=== PATIENT | female | born 1960 | race Hispanic/Latino ===

== ENCOUNTER 2020-04-18 07:07 | Emergency (ER) | payer SELFPAY ==
[2020-04-18 07:18] VITALS: BP 105/72
--- NOTE | 2020-04-18 07:48 | Emergency Department Report ---
Chief Complaint: Headache Stated Complaint: MIGRAINE Time Seen by Provider: 04/18/20 07:30 - [facility] History of Present Illness: This is a 60-year-old female with long history of migraine headaches who presents the ED complaining of migraine headache x1 day. She describes the pain as throbbing and aching in nature and rates it about a 6 out of 10 intensity. patient states that pain is localized to the frontal region and started last night. Patient states that she normally takes Imitrex 50 mg and is out of her medication. Patient denies any trauma to the head, blurry vision, dizziness, lightheadedness, vomiting or any other complaints. Pt. admits pain not relieved with [id number] medication such as Motrin, Pt. denies fever, chills, vomiting, trauma, vision impairment, - ROS Review of Systems: As noted in HPI - Exam Vital Signs: Vital Signs 04/18/20 07:11 Temperature 98.7 F Pulse Rate 89 Respiratory 18 Rate Blood Pressure 105/72 O2 Sat by Pulse 96 Oximetry Physical Exam: GENERAL: Alert and oriented x3, no apparent distress, Normal Gait, atraumatic. HEAD: Head is normocephalic and a-traumatic. EYES: Extra ocular muscles are intact. Pupils are equal, round, and reactive to light and accommodation. NECK: Supple. Non edematous, No carotid bruits. No lymphadenopathy or thyromegaly. No C-spine tenderness NEUROLOGIC: The patient is cooperative with no focal neurologic deficits. Cranial nerves II through XII are grossly intact. Normal speech. Normal sensation in bilateral upper and lower extremities, No loss of sensation, No facial droop, SKIN: Warm and dry, No lesions, No ulceration or induration present. MSE screening note: Focused history and physical exam performed. Due to findings the following was ordered: ED Medical Decision Making - Medical Decision Making 60-year-old presents with headache secondary to migraine headache. Patient has a known history and is out of her medication. I discussed patient will discharge with couple days worth of Imitrex and to follow-up with her primary care physician to get her current prescription. Patient had no neurological deficit during ED stay. Vital signs are normal she is in no acute or respiratory distress. ED Disposition for MSE Clinical Impression: Migraine headache without aura Disposition: MED SCREENING EXAM-LEFT Is pt being admited?: No Does the pt Need Aspirin: No Instructions: Migraine Headache (ED), Acute Headache (ED) Additional Instructions: Make sure to follow up with the primary care physician as discussed. Take all your medications as you've been prescribed. If you have any worsening symptoms or develop new symptoms please return to ED immediately. Prescriptions: SUMAtriptan SUCCINATE [Imitrex] 50 mg PO BID #10 tab Referrals: [facility] [Outside] - 3-5 Days [facility] [Outside] - 3-5 Days [facility] [Outside] - 3-5 Days Forms: Work/School Release Form(ED) Time of Disposition: 07:54
== END 2020-04-18 08:05 | disposition left against medical advice (07) ==
LOC: ED 07:07
DX: G43.909 Migraine, unspecified, not intractable, without status migrainosus (principal); Z53.21 Procedure and treatment not carried out due to patient leaving prior to being seen by health care provider

== ENCOUNTER 2020-07-09 08:14 | Emergency (ER) | payer BC ==
[2020-07-09 08:59] LABS: Basophils % (Auto) 0.4 % (0.0-1.8); Eosinophils # (Auto) 0.2 K/mm3 (0.0-0.4); Eosinophils % (Auto) 2.7 % (0.0-4.3); Hematocrit 40.4 % (30.3-42.9); Hemoglobin 13.5 gm/dl (10.1-14.3); Lymphocytes # (Auto) 1.4 K/mm3 (1.2-5.4); Lymphocytes % (Auto) 18.1 % (13.4-35.0); Mean Corpuscular HGB Conc 33 % (30-34); Mean Corpuscular Volume 93 fl (79-97); Monocytes # (Auto) 0.3 K/mm3 (0.0-0.8); Monocytes % (Auto) 4.4 % (0.0-7.3); Platelet Count 173 K/mm3 (140-440); Red Blood Count 4.36 M/mm3 (3.65-5.03); Red Cell Distribution Width 14.5 % (13.2-15.2)
[2020-07-09 09:09] LABS: BUN/Creatinine Ratio 33; Blood Urea Nitrogen 30 mg/dL (7-17); Calcium 10.2 mg/dL (8.4-10.2); Hemolysis Index 7
--- NOTE | 2020-07-09 10:29 | XRay Report ---
CHEST 2 VIEWS INDICATION / CLINICAL INFORMATION: Chest Pain. COMPARISON: 05/22/2009 FINDINGS: SUPPORT DEVICES: None. HEART / MEDIASTINUM: No significant abnormality. LUNGS / PLEURA: No significant pulmonary or pleural abnormality. No pneumothorax. ADDITIONAL FINDINGS: No significant additional findings. IMPRESSION: 1. No acute findings. No significant interval change. Signer Name: Иван Balderas MD Signed: 07/09/2020 10:24 AM Workstation Name: [id number]
--- NOTE | 2020-07-09 10:53 | Emergency Department Report ---
HPI - General Chief Complaint: Chest Pain Time Seen by Provider: 07/09/20 10:27 - HPI HPI: This is a 60-year-old female who presents to the emergency department with multiple complaints. Patient says that she woke up this morning with a generalized headache that she calls a migraine. She does have a history of migraines and says that this feels similar. She says that there is some associated numbness and/or tingling to the left arm. Patient also woke up with a productive cough but denies feeling short of breath. Thirdly, the patient complained of some generalized chest heaviness that also started this morning. At this time the chest heaviness has resolved. The cough has improved. She still complains of a generalized migraine headache that is about 5 out of 10 in intensity. The patient took 2 of her Imitrex this morning without any relief. She called the 24-hour nurse hotline through her insurance company and was told to call for EMS and go to the hospital for evaluation. 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 She denies any fever, nausea, vomiting, lower extremity swelling, back pain. She has a past medical history of migraines, hypertension, hypothyroidism, high cholesterol, bipolar disorder. ED Past Medical Hx - Past Medical History Hx Hypertension: Yes Hx Headaches / Migraines: Yes Hx Psychiatric Treatment: Yes (Bipolar) Additional medical history: Hypothyroidism. high cholestrol - Surgical History Additional Surgical History: . carpal tunnel- right wrist. left leg surgery- titanium placed in ankle and leg - Social History Smoking Status: Current Every Day Smoker - Medications Home Medications: Home Medications Medication Instructions Recorded Confirmed Last Taken Type SUMAtriptan SUCCINATE [Imitrex] 50 mg PO BID #10 tab 04/18/20 Unknown Rx Levothyroxine [Synthroid] 25 mcg PO QAM #30 tablet 07/09/20 Unknown Rx ED Review of Systems ROS: Stated complaint: CHEST PAIN Other details as noted in HPI Comment: All other systems reviewed and negative Constitutional: denies: chills, fever Eyes: denies: eye pain, vision change ENT: denies: ear pain, throat pain Respiratory: cough. denies: shortness of breath Cardiovascular: chest pain (heaviness). denies: edema Gastrointestinal: denies: abdominal pain, vomiting Genitourinary: denies: dysuria, discharge Musculoskeletal: denies: back pain, arthralgia Skin: denies: rash, lesions Neurological: headache, paresthesias. denies: weakness Physical Exam - Physical Exam Vital Signs: Vital Signs 07/09/20 08:25 Temperature 98.3 F Pulse Rate 50 L Respiratory 16 Rate Blood Pressure 124/60 O2 Sat by Pulse 96 Oximetry Physical Exam: GENERAL: The patient is well-developed well-nourished. HENT: Normocephalic. Atraumatic. Patient has moist mucous membranes. EYES: Extraocular motions are intact. Pupils equal reactive to light bilaterally. No nystagmus. NECK: Supple. Trachea is midline. CHEST/LUNGS: Clear to auscultation. There is no respiratory distress noted. HEART/CARDIOVASCULAR: Regular. There is no tachycardia. There is no murmur. ABDOMEN: Abdomen is soft, nontender. Patient has normal bowel sounds. SKIN: Skin is warm and dry. NEURO: The patient is awake, alert, and oriented. The patient is cooperative. The patient has no focal neurologic deficits. Normal speech. Cranial nerves II through XII grossly intact. No pronator drift or dysmetria. MUSCULOSKELETAL: There is no tenderness or deformity. There is no limitation range of motion. ED Course Vital Signs 07/09/20 08:25 Temperature 98.3 F Pulse Rate 50 L Respiratory 16 Rate Blood Pressure 124/60 O2 Sat by Pulse 96 Oximetry - Reevaluation(s) Reevaluation #1: 07/09/20 18:18 Lab Results 07/09/20 07/09/20 07/09/20 Range/Units 08:42 08:42 11:01 WBC 7.7 (4.5-11.0) K/mm3 RBC 4.36 (3.65-5.03) M/mm3 Hgb 13.5 (10.1-14.3) gm/dl Hct 40.4 (30.3-42.9) % MCV 93 (79-97) fl MCH 31 (28-32) pg MCHC 33 (30-34) % RDW 14.5 (13.2-15.2) % Plt Count 173 (140-440) K/mm3 Lymph % (Auto) 18.1 (13.4-35.0) % Cottle % (Auto) 4.4 (0.0-7.3) % Eos % (Auto) 2.7 (0.0-4.3) % Baso % (Auto) 0.4 (0.0-1.8) % Lymph # 1.4 (1.2-5.4) K/mm3 Cottle # 0.3 (0.0-0.8) K/mm3 Eos # 0.2 (0.0-0.4) K/mm3 Baso # 0.0 (0.0-0.1) K/mm3 Seg Neutrophils % 74.4 H (40.0-70.0) % Seg Neutrophils # 5.8 (1.8-7.7) K/mm3 Sodium 139 (137-145) mmol/L Potassium 4.5 (3.6-5.0) mmol/L Chloride 100.6 (98-107) mmol/L Carbon Dioxide 26 (22-30) mmol/L Anion Gap 17 mmol/L BUN 30 H (7-17) mg/dL Creatinine 0.9 (0.6-1.2) mg/dL Estimated GFR > 60 ml/min BUN/Creatinine Ratio 33 % Glucose 104 H (65-100) mg/dL Calcium 10.2 (8.4-10.2) mg/dL Troponin T < 0.010 (0.00-0.029) ng/mL TSH 9.510 H (0.270-4.200) mlU/mL Free T4 0.60 L (0.76-1.46) ng/dL 07/09/20 Range/Units 12:24 WBC (4.5-11.0) K/mm3 RBC (3.65-5.03) M/mm3 Hgb (10.1-14.3) gm/dl Hct (30.3-42.9) % MCV (79-97) fl MCH (28-32) pg MCHC (30-34) % RDW (13.2-15.2) % Plt Count (140-440) K/mm3 Lymph % (Auto) (13.4-35.0) % Cottle % (Auto) (0.0-7.3) % Eos % (Auto) (0.0-4.3) % Baso % (Auto) (0.0-1.8) % Lymph # (1.2-5.4) K/mm3 Cottle # (0.0-0.8) K/mm3 Eos # (0.0-0.4) K/mm3 Baso # (0.0-0.1) K/mm3 Seg Neutrophils % (40.0-70.0) % Seg Neutrophils # (1.8-7.7) K/mm3 Sodium (137-145) mmol/L Potassium (3.6-5.0) mmol/L Chloride (98-107) mmol/L Carbon Dioxide (22-30) mmol/L Anion Gap mmol/L BUN (7-17) mg/dL Creatinine (0.6-1.2) mg/dL Estimated GFR ml/min BUN/Creatinine Ratio % Glucose (65-100) mg/dL Calcium (8.4-10.2) mg/dL Troponin T < 0.010 (0.00-0.029) ng/mL TSH (0.270-4.200) mlU/mL Free T4 (0.76-1.46) ng/dL ED Medical Decision Making - Lab Data Result diagrams: 07/09/20 08:42 07/09/20 08:42 - EKG Data -: EKG Interpreted by Me EKG shows normal: sinus rhythm (PACs), axis, intervals, QRS complexes (Q waves to the septal leads), ST-T waves Rate: bradycardia (45 bpm) - EKG Data When compared to previous EKG there are: previous EKG unavailable Interpretation: other (Sinus rhythm with PACs, bradycardia at 45 bpm, Q waves to the septal leads. No ST elevation [place]) - Radiology Data Radiology results: report reviewed, image reviewed interpreted by me: Chest x-ray does not show any acute process. There are no pleural effusions, obvious pneumonia and there is no pneumothorax. No significant cardiomegaly. CT head/brain wo con INDICATION: Headache. TECHNIQUE: Routine CT head. All CT scans at this location are performed using CT dose reduction for ALARA by means of automated exposure control. COMPARISON: None. FINDINGS: Intracranial: Steinberg- white matter differentiation is maintained. No intracranial hemorrhage. No extra axial collection.. No hydrocephalus. No herniation. Sinuses: Frothy secretions in the left maxillary sinus. Otherwise paranasal sinuses and mastoid air cells are essentially clear. Orbits: Globes are intact. Calvarium: No acute fracture. IMPRESSION: 1. No acute intracranial abnormality. 2. Small quantity of frothy secretions in the left frontal sinus. Findings can be seen in the setting of acute sinusitis in the correct clinical setting. - Medical Decision Making Regarding the patient's headache, she says it is consistent with previous migraines. 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 CT scan of the head without contrast was completed that does not show any bleed, shift, mass, ischemia, or any other acute process. Regarding the patient's cough, a chest x-ray was done that does not show any pneumonia, pleural effusions, pneumothorax, focal consolidation, or any other acute process. The patient's vital signs have been reassuring throughout her ED course including being afebrile and no hypoxia. Also, I did not hear the patient cough during my initial evaluation or any re-evaluations during her ED course. Regarding the patient's chest pain, she has said that this has resolved at the time of my initial examination. EKG does not show any signs of ST elevation [place]. As previously mentioned, chest x-ray was unremarkable for any acute process. Patient's labs were unremarkable including CBC, metabolic panel and a negative troponin. Patient has a low heart and TERRANCE score. Her contact information has been sent over to [facility] and someone should be contacting her shortly for close outpatient follow-up as per our hospitals low risk chest pain protocol. The only lab abnormality found was a high TSH and low T4 level showing hypothyroidism. The patient has a history of hypothyroidism and has been noncompliant with her medication. She will be started on low-dose levothyroxine. Patient will be discharged home to follow-up with a primary care physician and has been given multiple outpatient referrals. She will return to the emergency department with any worsening of her symptoms or with any acute distress. Critical Care Time: No Critical care attestation.: If time is entered above; I have spent that time in minutes in the direct care of this critically ill patient, excluding procedure time. ED Disposition Clinical Impression: Intermittent chest pain Headache Qualifiers: Headache type: unspecified Headache chronicity pattern: unspecified pattern Intractability: not intractable Qualified Code(s): R51 - Headache Upper respiratory infection Qualifiers: URI type: unspecified viral URI Qualified Code(s): J06.9 - Acute upper respiratory infection, unspecified Hypothyroid Qualifiers: Hypothyroidism type: other Qualified Code(s): E03.8 - Other specified hypothyroidism Disposition: DC- TO HOME OR SELFCARE Is pt being admited?: No Condition: Stable Instructions: Chest Pain (ED), Migraine Headache (ED), Upper Respiratory Infect ion (ED) Additional Instructions: Please follow-up with a primary care physician in the next few days and I have given you a referral for a few local primary care physicians and clinics. I have also sent your contact information to [facility], and someone from their office should be contacting you shortly for close outpatient follow-up. Return to the emergency department with any worsening of your symptoms or with any acute distress. Prescriptions: Levothyroxine [Synthroid] 25 mcg PO QAM #30 tablet Referrals: PRIMARY MD HERBER [Primary Care Provider] - 3-5 Days KWADWO VILLARREAL MD [Staff Physician] - 3-5 Days FREDY CR MD [Staff Physician] - 3-5 Days [facility] [Provider Group] - 3-5 Days Forms: Work/School Release Form(ED) Time of Disposition: 13:20 Heart Score - HEART Score History: Slightly suspicious EKG: Normal Age: 45-65 Risk factors: 1-2 risk factors Troponin: < normal limit HEART Score: 2 - Critical Actions Critical Actions: 0-3 pts:0.9-1.7%risk of adverse cardiac event.Candidate for discharge TERRANCE score - Terrance Score Age > 65: (0) No Aspirin use within the Past 7 Days: (0) No 3 or more CAD Risk Factors: (0) No 2 or more Angina events in past 24 hrs: (1) Yes Known CAD with more than 50% Stenosis: (0) No Elevated Cardiac Markers: (0) No ST Deviation Greater than 0.5mm: (0) No TERRANCE Score: 1
[2020-07-09 11:46] LABS: Free T4 (Free Thyroxine) 0.6 ng/dL (0.76-1.46)
--- NOTE | 2020-07-09 12:10 | Cat Scan Report ---
CT head/brain wo con INDICATION: Headache. TECHNIQUE: Routine CT head. All CT scans at this location are performed using CT dose reduction for A EMILIO by means of automated exposure control. COMPARISON: None. FINDINGS: Intracranial: Steinberg-white matter differentiation is maintained. No intracranial hemorrhage. No extra a xial collection.. No hydrocephalus. No herniation. Sinuses: Frothy secretions in the left maxillary sinus. Otherwise paranasal sinuses and mastoid air c ells are essentially clear. Orbits: Globes are intact. Calvarium: No acute fracture. IMPRESSION: 1. No acute intracranial abnormality. 2. Small quantity of frothy secretions in the left frontal sinus. Findings can be seen in the setting of acute sinusitis in the correct clinical setting. Signer Name: Yakov Ross MD Signed: 07/09/2020 12:06 PM Workstation Name: [id number]
[2020-07-09] MEDS ORDERED: IBUPROFEN 800 MG TAB PO ONE (13:07)
[2020-07-09 13:14] VITALS: BP 120/80
== END 2020-07-09 14:10 | disposition home or self-care (01) ==
LOC: ED 08:14
DX: J06.9 Acute upper respiratory infection, unspecified (principal); R51 Headache; R07.89 Other chest pain; E03.9 Hypothyroidism, unspecified; I10 Essential (primary) hypertension; F31.9 Bipolar disorder, unspecified; F17.200 Nicotine dependence, unspecified, uncomplicated; Z98.890 Other specified postprocedural states; Z79.899 Other long term (current) drug therapy; Z88.8 Allergy status to other drugs, medicaments and biological substances
CPT/HCPCS: 36415; 70450; 71046; 80048; 84439; 84443; 84484; 85025; 93005

== ENCOUNTER 2020-08-15 08:37 | Emergency (ER) | payer BC ==
[2020-08-15] MEDS ORDERED: SODIUM CHLORIDE 0.9% 1000 ML 1,000 ML IV ONE (10:34)
[2020-08-15] MEDS ORDERED: PANTOPRAZOLE 40 MG INJ IV ONE (10:34)
[2020-08-15] MEDS ORDERED: ONDANSETRON 4 MG/2 ML INJ IV ONE (10:34)
--- NOTE | 2020-08-15 10:49 | Emergency Department Report ---
ED General Adult HPI - General Chief complaint: Overdose Stated complaint: ACCIDENTAL POISONING Time Seen by Provider: 08/15/20 10:11 Source: patient Mode of arrival: Ambulatory Limitations: No Limitations - History of Present Illness Initial comments: This is a 60-year old female who states that she ran out of her Xanax and purchased [address] last Monday. She states that she finished them by Monday and began to get nauseated. By she states she was vomiting brown material. She states she has been drinking a lot of Coca-Cola and coffee which she spontaneously offers as an explanation for the brown emesis. She denies any black stool. She states her last bowel movement was small and yesterday and without abnormality. She states it was small because of her decreased p.o. intake. She states that she eat and does feel nauseated. She complains of nonspecific abdominal discomfort. She denies fever or chills. Patient states she has a history of depression and PTSD. She states that she was experiencing distress to the anniversary of her 's suicide. She denies suicidal ideation herself. She states that she had a psychiatric admission in the but not since. She is declining mental health counseling today. She is lucid and has full mental capacity. She does not meet criteria for 1013 involuntary confinement. Furthermore, she is not here for mental health symptoms per se and refusing medical health counseling. I cannot write compel to do otherwise. -: Gradual, days(s) Location: abdomen Radiation: non-radiation Quality: aching Consistency: intermittent Improves with: none Worsens with: eating Associated Symptoms: denies other symptoms, nausea/vomiting Treatments Prior to Arrival: none - Related Data Home Medications Medication Instructions Recorded Confirmed Last Taken ALPRAZolam [Xanax TAB] 0.5 mg PO TID PRN 08/15/20 08/15/20 Unknown FLUoxetine HCL [PROzac] 40 mg PO QDAY 08/15/20 08/15/20 Unknown Levothyroxine [Synthroid] 75 mcg PO QAM 08/15/20 08/15/20 Unknown Lisinopril/Hydrochlorothiazide 1 each PO DAILY 08/15/20 08/15/20 Unknown [Zestoretic 10-12.5 mg Tablet] OLANzapine [ZyPREXA] 7.5 mg PO DAILY 08/15/20 08/15/20 Unknown Ondansetron (Nf) [Zofran TAB] 8 mg PO Q8HR PRN 08/15/20 08/15/20 Unknown Previous Rx's Medication Instructions Recorded Last Taken Type SUMAtriptan SUCCINATE [Imitrex] 50 mg PO BID #10 tab 04/18/20 Unknown Rx Lansoprazole [Prevacid] 15 mg PO BID #30 cap 08/15/20 Unknown Rx Ondansetron [Zofran Odt] 4 mg PO Q8HR #7 tab.rapdis 08/15/20 Unknown Rx Allergies Allergy/AdvReac Type Severity Reaction Status Date / Time butorphanol tartrate AdvReac Unknown Verified 08/15/20 10:17 [From Stadol] ketorolac tromethamine AdvReac Unknown Verified 08/15/20 10:17 [From Toradol] tramadol AdvReac Unknown Verified 08/15/20 10:17 ED Review of Systems ROS: Stated complaint: ACCIDENTAL POISONING Other details as noted in HPI Constitutional: denies: chills, fever Eyes: denies: eye pain, eye discharge, vision change ENT: denies: ear pain, throat pain Respiratory: denies: cough, shortness of breath, wheezing Cardiovascular: denies: chest pain, palpitations Endocrine: no symptoms reported Gastrointestinal: abdominal pain, nausea. denies: diarrhea Genitourinary: denies: urgency, dysuria, discharge Musculoskeletal: denies: back pain, joint swelling, arthralgia Skin: denies: rash, lesions Neurological: denies: headache, weakness, paresthesias Psychiatric: as per HPI, depression. denies: anxiety Hematological/Lymphatic: denies: easy bleeding, easy bruising ED Past Medical Hx - Past Medical History Previous Medical History?: Yes Hx Hypertension: Yes Hx Headaches / Migraines: Yes Hx Psychiatric Treatment: Yes (Bipolar) Additional medical history: Hypothyroidism. high cholestrol - Surgical History Past Surgical History?: Yes Additional Surgical History: . carpal tunnel- right wrist. left leg surgery- titanium placed in ankle and leg - Social History Smoking Status: Current Every Day Smoker Substance Use Type: Tranquilizers, Other - Medications Home Medications: Home Medications Medication Instructions Recorded Confirmed Last Taken Type SUMAtriptan SUCCINATE [Imitrex] 50 mg PO BID #10 tab 04/18/20 08/15/20 Unknown Rx ALPRAZolam [Xanax TAB] 0.5 mg PO TID PRN 08/15/20 08/15/20 Unknown History FLUoxetine HCL [PROzac] 40 mg PO QDAY 08/15/20 08/15/20 Unknown History Lansoprazole [Prevacid] 15 mg PO BID #30 cap 08/15/20 Unknown Rx Levothyroxine [Synthroid] 75 mcg PO QAM 08/15/20 08/15/20 Unknown History Lisinopril/Hydrochlorothiazide 1 each PO DAILY 08/15/20 08/15/20 Unknown History [Zestoretic 10-12.5 mg Tablet] OLANzapine [ZyPREXA] 7.5 mg PO DAILY 08/15/20 08/15/20 Unknown History Ondansetron (Nf) [Zofran TAB] 8 mg PO Q8HR PRN 08/15/20 08/15/20 Unknown History Ondansetron [Zofran Odt] 4 mg PO Q8HR #7 tab.rapdis 08/15/20 Unknown Rx ED Physical Exam - General Limitations: No Limitations General appearance: alert, in no apparent distress - Head Head exam: Present: atraumatic, normocephalic - Eye Eye exam: Present: normal appearance. Absent: scleral icterus - ENT ENT exam: Present: mucous membranes moist - Neck Neck exam: Present: normal inspection - Respiratory Respiratory exam: Present: normal lung sounds bilaterally. Absent: respiratory distress - Cardiovascular Cardiovascular Exam: Present: regular rate, normal rhythm. Absent: systolic murmur, diastolic murmur, rubs, gallop - GI/Abdominal GI/Abdominal exam: Present: soft, normal bowel sounds, other (Obese). Absent: tenderness, guarding, rebound, rigid - Extremities Exam Extremities exam: Present: normal inspection - Back Exam Back exam: Present: normal inspection - Neurological Exam Neurological exam: Present: alert, oriented X3, CN II-XII intact. Absent: motor sensory deficit - Psychiatric Psychiatric exam: Present: normal affect, normal mood - Skin Skin exam: Present: warm, dry, intact, normal color. Absent: rash ED Course Vital Signs 08/15/20 08/15/20 08/15/20 08:46 09:57 11:01 Temperature 98.4 F Pulse Rate 94 H 78 70 Respiratory 18 15 18 Rate Blood Pressure 115/82 123/84 Blood Pressure 134/78 [Left] O2 Sat by Pulse 93 97 94 Oximetry 08/15/20 12:00 Temperature Pulse Rate 60 Respiratory 11 L Rate Blood Pressure 107/72 Blood Pressure [Left] O2 Sat by Pulse 93 Oximetry - Reevaluation(s) Reevaluation #1: Patient looks better hydrated. She states "I feel better". She will be given a trial of p.o. fluids. She states that, "I just wanted to make sure I was not poisoned". She is referring to the street Xanax that she took. She is not delusional nor psychotic. She is not obviously depressed. She is not suicidal. We will give her p.o. trial and see how she does. 08/15/20 12:59 Reevaluation #2: Patient tolerated p.o. well. She is improved and now asymptomatic. She is appropriate for outpatient follow-up. 08/15/20 13:32 ED Medical Decision Making - Lab Data Result diagrams: 08/15/20 10:07 08/15/20 10:15 Laboratory Results - last 24 hr 08/15/20 08/15/20 08/15/20 10:07 10:07 10:15 WBC 3.9 L RBC 4.83 Hgb 14.9 H Hct 44.3 H MCV 92 MCH 31 MCHC 34 RDW 13.7 Plt Count 220 Lymph % (Auto) [employer] [place] % (Auto) [employer] Eos % (Auto) [employer] Baso % (Auto) [employer] Lymph # (Auto) [employer] [place] # (Auto) [employer] Eos # (Auto) [employer] Baso # (Auto) [employer] Seg Neutrophils % [employer] Seg Neutrophils # [employer] PT 13.3 INR 1.00 APTT 29.3 Sodium 136 L Potassium 3.3 L Chloride 90.7 L Carbon Dioxide 35 H Anion Gap 14 BUN 32 H Creatinine 0.9 Estimated GFR > 60 BUN/Creatinine Ratio 36 Glucose 124 H Calcium 9.8 Total Bilirubin 0.80 Direct Bilirubin 0.2 Indirect Bilirubin 0.6 AST 29 ALT 26 Alkaline Phosphatase 64 Total Creatine Kinase 130 CK-MB (CK-2) 2.6 CK-MB (CK-2) Rel Index 2.0 Troponin T < 0.010 Total Protein 6.9 Albumin 4.6 Albumin/Globulin Ratio 2.0 Salicylates Acetaminophen 08/15/20 08/15/20 10:18 10:18 WBC RBC Hgb Hct MCV MCH MCHC RDW Plt Count Lymph % (Auto) [place] % (Auto) Eos % (Auto) Baso % (Auto) Lymph # (Auto) [place] # (Auto) Eos # (Auto) Baso # (Auto) Seg Neutrophils % Seg Neutrophils # PT INR APTT Sodium Potassium Chloride Carbon Dioxide Anion Gap BUN Creatinine Estimated GFR BUN/Creatinine Ratio Glucose Calcium Total Bilirubin Direct Bilirubin Indirect Bilirubin AST ALT Alkaline Phosphatase Total Creatine Kinase CK-MB (CK-2) CK-MB (CK-2) Rel Index Troponin T Total Protein Albumin Albumin/Globulin Ratio Salicylates < 0.3 L Acetaminophen 5.0 L - EKG Data -: EKG Interpreted by Nv EKG shows normal: sinus rhythm Rate: normal - EKG Data Interpretation: other (Low voltage, no acute changes) Critical care attestation.: If time is entered above; I have spent that time in minutes in the direct care of this critically ill patient, excluding procedure time. ED Disposition Clinical Impression: Benzodiazepine abuse, Acute prerenal azotemia, Hypokalemia Abdominal pain Qualifiers: Abdominal location: generalized Qualified Code(s): R10.84 - Generalized abdominal pain Disposition: DC-01 TO HOME OR SELFCARE Is pt being admited?: No Does the pt Need Aspirin: No Condition: Stable Instructions: Abdominal Pain (ED), Dehydration (ED), Hypokalemia (ED) Additional Instructions: Increase fluid intake. Return any acute change or recurrent symptoms. Follow- up with [facility]. Prescriptions: Lansoprazole [Prevacid] 15 mg PO BID #30 cap Ondansetron [Zofran Odt] 4 mg PO Q8HR #7 tab.rapdis Referrals: PRIMARY CARE, [Primary Care Provider] - 3-5 Days [facility] [Provider Group] - 3-5 Days [facility] [Provider Group] - 2-3 Days Time of Disposition: 13:34
[2020-08-15 10:50] LABS: Partial Thromboplastin Time 29.3 Sec. (24.2-36.6)
[2020-08-15 11:06] LABS: Hematocrit 44.3 % (30.3-42.9); Hemoglobin 14.9 gm/dl (10.1-14.3); Mean Corpuscular HGB Conc 34 % (30-34); Mean Corpuscular Volume 92 fl (79-97); Platelet Count 220 K/mm3 (140-440); Red Blood Count 4.83 M/mm3 (3.65-5.03); Red Cell Distribution Width 13.7 % (13.2-15.2)
[2020-08-15 11:13] LABS: Creatine Kinase MB 2.6 ng/mL (0.0-4.0)
[2020-08-15 11:14] LABS: Alanine Aminotransferase 26 units/L (7-56); Albumin 4.6 g/dL (3.9-5); BUN/Creatinine Ratio 36; Bilirubin,Direct 0.2 mg/dL (0-0.2); Blood Urea Nitrogen 32 mg/dL (7-17); Calcium 9.8 mg/dL (8.4-10.2); Hemolysis Index 8
[2020-08-15] MEDS ORDERED: POTASSIUM CHLORIDE ER 20 MEQ TAB PO ONE (13:08)
[2020-08-15 14:09] VITALS: BP 127/83
== END 2020-08-15 14:09 | disposition home or self-care (01) ==
LOC: ED 08:37
DX: E87.6 Hypokalemia (principal); R39.2 Extrarenal uremia; F15.10 Other stimulant abuse, uncomplicated; R10.84 Generalized abdominal pain; I10 Essential (primary) hypertension; F31.9 Bipolar disorder, unspecified; G43.909 Migraine, unspecified, not intractable, without status migrainosus; E05.00 Thyrotoxicosis with diffuse goiter without thyrotoxic crisis or storm; E78.00 Pure hypercholesterolemia, unspecified; F17.200 Nicotine dependence, unspecified, uncomplicated; Z98.890 Other specified postprocedural states; Z79.899 Other long term (current) drug therapy; Z88.6 Allergy status to analgesic agent
CPT/HCPCS: 36415; 80048; 80076; 82550; 82553; 84484; 85025; 85610; 85730; 93005; 96361; 96374; 96375; 99284; C9113; J2405; J7030; 80320; G0480

== ENCOUNTER 2022-05-22 13:38 | Inpatient (IN) | payer SELFPAY ==
[2022-05-22] MEDS ORDERED: MIDAZOLAM 2 MG/2 ML INJ IV STA (18:32)
--- NOTE | 2022-05-22 18:33 | Emergency Department Report ---
ED General Adult HPI - General Chief complaint: Medical Clearance Stated complaint: WITHDRAWL Time Seen by Provider: 05/22/22 18:22 Source: patient, RN notes reviewed, old records reviewed Mode of arrival: Ambulatory Limitations: Physical Limitation - History of Present Illness Initial comments: The patient was evaluated in the emergency department for symptoms described in the history of present illness. He/she was evaluated in the context of the [facility] COVID-19 pandemic, which necessitated consideration that the patient might be at risk for infection with the virus that causes COVID-19. Institutional protocols and algorithms that pertain to the evaluation of patients at risk for COVID-19 are in a state of rapid change based on information released by regulatory bodies including the CDC and federal and state organizations. These policies and algorithms were followed during the patient's care in the emergency department. Please note that these policies, procedures and recommendations changed on a rapid basis. This is a 62-year-old female who presents to the department today with a request for Xanax refill. She reports that someone either took her Xanax, or that she had misplaced her Xanax. She denies physical pain. On review of systems, does report nonspecific dizziness, and sensation of unsteady gait. Thinks that dizziness started last night, cannot recall exactly what time, and believes that unsteady gait was present upon waking up this morning. On review of systems, also endorses right upper extremity numbness and weakness. -: days(s) Location: right, upper extremity Severity scale (0 -10): 5 Consistency: constant Improves with: rest Worsens with: movement - Related Data Home Medications Medication Instructions Recorded Confirmed Last Taken ALPRAZolam [Xanax TAB] 0.5 mg PO TID PRN 08/15/20 08/15/20 Unknown FLUoxetine HCL [PROzac] 40 mg PO QDAY 08/15/20 08/15/20 Unknown Levothyroxine [Synthroid] 75 mcg PO QAM 08/15/20 08/15/20 Unknown Lisinopril/Hydrochlorothiazide 1 each PO DAILY 08/15/20 08/15/20 Unknown [Zestoretic 10-12.5 mg Tablet] OLANzapine [ZyPREXA] 7.5 mg PO DAILY 08/15/20 08/15/20 Unknown Ondansetron (Nf) [Zofran TAB] 8 mg PO Q8HR PRN 08/15/20 08/15/20 Unknown Previous Rx's Medication Instructions Recorded Last Taken Type SUMAtriptan SUCCINATE [Imitrex] 50 mg PO BID #10 tab 04/18/20 Unknown Rx Lansoprazole [Prevacid] 15 mg PO BID #30 cap 08/15/20 Unknown Rx Ondansetron [Zofran Odt] 4 mg PO Q8HR #7 tab.rapdis 08/15/20 Unknown Rx Allergies Allergy/AdvReac Type Severity Reaction Status Date / Time butorphanol tartrate AdvReac Unknown Verified 08/15/20 10:17 [From Stadol] ketorolac tromethamine AdvReac Unknown Verified 08/15/20 10:17 [From Toradol] tramadol AdvReac Unknown Verified 08/15/20 10:17 ED Review of Systems ROS: Stated complaint: WITHDRAWL Other details as noted in HPI Constitutional: malaise. denies: fever Eyes: denies: eye discharge Respiratory: denies: cough Cardiovascular: denies: chest pain Musculoskeletal: arthralgia, myalgia Neurological: headache, weakness, abnormal gait Psychiatric: denies: homicidal thoughts, suicidal thoughts ED Past Medical Hx - Past Medical History Previous Medical History?: Yes Hx Hypertension: Yes Hx Headaches / Migraines: Yes Hx Psychiatric Treatment: Yes (Bipolar) Additional medical history: Hypothyroidism. high cholestrol - Surgical History Past Surgical History?: Yes Additional Surgical History: . carpal tunnel- right wrist. left leg surgery- titanium placed in ankle and leg - Social History Smoking Status: Current Every Day Smoker Substance Use Type: Tranquilizers, Other - Medications Home Medications: Home Medications Medication Instructions Recorded Confirmed Last Taken Type SUMAtriptan SUCCINATE [Imitrex] 50 mg PO BID #10 tab 04/18/20 08/15/20 Unknown Rx ALPRAZolam [Xanax TAB] 0.5 mg PO TID PRN 08/15/20 08/15/20 Unknown History FLUoxetine HCL [PROzac] 40 mg PO QDAY 08/15/20 08/15/20 Unknown History Lansoprazole [Prevacid] 15 mg PO BID #30 cap 08/15/20 Unknown Rx Levothyroxine [Synthroid] 75 mcg PO QAM 08/15/20 08/15/20 Unknown History Lisinopril/Hydrochlorothiazide 1 each PO DAILY 08/15/20 08/15/20 Unknown History [Zestoretic 10-12.5 mg Tablet] OLANzapine [ZyPREXA] 7.5 mg PO DAILY 08/15/20 08/15/20 Unknown History Ondansetron (Nf) [Zofran TAB] 8 mg PO Q8HR PRN 08/15/20 08/15/20 Unknown History Ondansetron [Zofran Odt] 4 mg PO Q8HR #7 tab.rapdis 08/15/20 Unknown Rx ED Physical Exam - General Limitations: Physical Limitation General appearance: alert, anxious, in distress - Head Head exam: Present: atraumatic, normocephalic - Eye Eye exam: Present: normal appearance, EOMI. Absent: nystagmus - ENT ENT exam: Present: normal exam, normal orophraynx, mucous membranes moist, normal external ear exam, other (Poor dentition) - Neck Neck exam: Present: normal inspection, full ROM. Absent: tenderness, meningismus - Respiratory Respiratory exam: Present: normal lung sounds bilaterally. Absent: respiratory distress, wheezes, rales, rhonchi, stridor, decreased breath sounds - Cardiovascular Cardiovascular Exam: Present: regular rate, normal rhythm, normal heart sounds. Absent: bradycardia, tachycardia, irregular rhythm, systolic murmur, diastolic murmur, rubs, gallop - GI/Abdominal GI/Abdominal exam: Present: soft. Absent: distended, tenderness, guarding, rebound, rigid, pulsatile mass - Extremities Exam Extremities exam: Present: normal inspection, full ROM, pedal edema, other (2+ pulses noted in the bilateral upper and lower extremities. There is no palpable cord. negative Homans sign. Muscular compartments are soft. The pelvis is stable.). Absent: calf tenderness - Back Exam Back exam: Present: normal inspection. Absent: tenderness, CVA tenderness (R), CVA tenderness (L), paraspinal tenderness, vertebral tenderness - Neurological Exam Neurological exam: Present: alert, oriented X3, motor sensory deficit (There is decrease in station to light touch right upper extremity and right lower extremi ty), other (There is no facial droop. The tongue is midline. Patient making lipsmacking movements.) - Psychiatric Psychiatric exam: Present: normal affect, normal mood - Skin Skin exam: Present: warm, dry, intact, normal color. Absent: rash - Other Other exam information: The patient is not dysphonic The patient is speaking in complete sentences. The patient is not aphasic There is no facial droop. The tongue is midline. EOMI. 5 out of 5 strength left arm, left leg, right leg. 4.5 out of 5 strength right arm There is dysmetria noted in the left upper extremity. 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 05/03/2022 05/03/2022 1 Alprazolam 1 Mg Tablet 75.00 30 Ka Ent [id number] Kro (3986) 0 5.00 LME Comm Ins [place] 04/05/2022 04/05/2022 1 Alprazolam 1 Mg Tablet 75.00 30 Ka Ent [id number] Kro (3986) 0 5.00 LME Comm Ins 03/08/2022 03/08/2022 1 Alprazolam 1 Mg Tablet 75.00 30 Ka Ent [id number] Kro (8567) 0 5.00 LME Comm Ins 02/05/2022 02/03/2022 1 Alprazolam 1 Mg Tablet 75.00 30 Ka Ent [id number] Kro (8567) 0 5.00 [place] 01/08/2022 01/06/2022 1 Alprazolam 1 Mg Tablet 75.00 30 Ka Ent [id number] Kro (8567) 0 5.00 LME Comm Ins 12/13/2021 12/13/2021 1 Alprazolam 1 Mg Tablet 68.00 27 Er Gri [id number] Kro (8567) 0 5.04 LME Comm Ins 11/02/2021 11/01/2021 1 Alprazolam 1 Mg Tablet 60.00 30 Ma Vak [id number] Kro (8567) 0 4.00 [place] 10/04/2021 10/04/2021 1 Alprazolam 1 Mg Tablet 60.00 30 Ma Vak [id number] Kro (8567) 0 4.00 [place] 08/20/2021 08/19/2021 1 Alprazolam 1 Mg Tablet 60.00 30 Ma Vak [id number] Kro (8567) 0 4.00 [place] 07/23/2021 07/22/2021 1 Alprazolam 1 Mg Tablet 60.00 30 Ma Vak [id number] Kro (8567) 0 4.00 [place] 06/24/2021 06/24/2021 1 Alprazolam 1 Mg Tablet 60.00 30 Ma Vak [id number] Kro (8567) 0 4.00 [place] 05/27/2021 05/27/2021 1 Alprazolam 1 Mg Tablet 60.00 30 Ma Vak [id number] Kro (8567) 0 4.00 LME Comm Ins [place] Reevaluation #2: 05/22/22 19:28 Differential diagnosis, including but not limited to: Subacute stroke, Jay's paralysis, conversion disorder, benzodiazepine dependence, benzodiazepine withdrawal Electrolyte derangement, thyroid derangement Assessment and plan: 62-year-old female presenting with a request for Xanax refill. Endorses nonspecific dizziness, right-sided numbness, unsteady gait. Presents more than 4.5 hours after last known well time. She is therefore not a tPA candidate. Her examination is not suggestive of a large vessel occlusion. She will be given a trial dose of midazolam. A noncontrast CT scan of the brain will be obtained. We will obtain EKG and appropriate laboratory studies. Have requested neurology consultation. I discussed this plan of care with the patient. She is agreeable to the plan of care. She does not meet criteria for 1013 hold or involuntary confinement at this time 05/22/22 19:29 05/22/22 19:45 Laboratory studies are essentially unremarkable. CT scan brain negative for acute findings. Plavix ordered given nonspecific ketorolac allergy. Awaiting neurology consultation. Nursing team endorses that patient has articulated improvement in symptoms after receiving midazolam. 05/22/22 20:45 Neurology recommendations reviewed and appreciated. Endorsed to Dr Radha Cardona, who will endorse cases to night time hospitalist ED Medical Decision Making - Lab Data Result diagrams: 05/22/22 18:46 05/22/22 18:46 Vital Signs 05/22/22 05/22/22 05/22/22 14:16 18:34 18:46 Temperature 97.6 F Pulse Rate 82 72 Respiratory 20 30 H Rate Blood Pressure 106/87 Blood Pressure 152/94 [Right] O2 Sat by Pulse 99 96 99 Oximetry 05/22/22 19:26 Temperature Pulse Rate 53 L Respiratory 15 Rate Blood Pressure Blood Pressure 163/98 [Right] O2 Sat by Pulse 99 Oximetry Lab Results 05/22/22 05/22/22 05/22/22 Range/Units 18:44 18:46 18:46 WBC 6.4 (4.5-11.0) K/mm3 RBC 4.18 (3.65-5.03) M/mm3 Hgb 12.8 (10.1-14.3) gm/dl Hct 39.0 (30.3-42.9) % MCV 93 (79-97) fl MCH 31 (28-32) pg MCHC 33 (30-34) % RDW 12.8 L (13.2-15.2) % Plt Count 257 (140-440) K/mm3 Lymph % (Auto) 19.6 (13.4-35.0) % Hayes % (Auto) 8.7 H (0.0-7.3) % Eos % (Auto) 1.8 (0.0-4.3) % Baso % (Auto) 0.9 (0.0-1.8) % Lymph # (Auto) 1.3 (1.2-5.4) K/mm3 Hayes # (Auto) 0.6 (0.0-0.8) K/mm3 Eos # (Auto) 0.1 (0.0-0.4) K/mm3 Baso # (Auto) 0.1 (0.0-0.1) K/mm3 Seg Neutrophils % 69.0 (40.0-70.0) % Seg Neutrophils # 4.4 (1.8-7.7) K/mm3 PT 12.8 (12.2-14.9) Sec. INR 0.87 (0.87-1.13) APTT 31.3 (24.2-36.6) Sec. Thrombin Time 15.7 (15.1-19.6) Sec. Sodium (137-145) mmol/L Potassium (3.6-5.0) mmol/L Chloride (98-107) mmol/L Carbon Dioxide (22-30) mmol/L Anion Gap mmol/L BUN (7-17) mg/dL Creatinine (0.6-1.2) mg/dL Estimated GFR ml/min BUN/Creatinine Ratio % Glucose (65-100) mg/dL POC Glucose 113 H (70-105) mg/dL Calcium (8.4-10.2) mg/dL Magnesium (1.7-2.3) mg/dL Total Bilirubin (0.1-1.2) mg/dL AST (5-40) units/L ALT (7-56) units/L Alkaline Phosphatase (35-129) units/L Total Creatine Kinase (30-135) units/L Total Protein (6.3-8.2) g/dL Albumin (3.9-5) g/dL Albumin/Globulin Ratio % Salicylates (2.8-20.0) mg/dL Acetaminophen (10.0-30.0) ug/mL Plasma/Serum Alcohol (0-0.07) % 05/22/22 05/22/22 05/22/22 Range/Units 18:46 18:46 18:46 WBC (4.5-11.0) K/mm3 RBC (3.65-5.03) M/mm3 Hgb (10.1-14.3) gm/dl Hct (30.3-42.9) % MCV (79-97) fl MCH (28-32) pg MCHC (30-34) % RDW (13.2-15.2) % Plt Count (140-440) K/mm3 Lymph % (Auto) (13.4-35.0) % Hayes % (Auto) (0.0-7.3) % Eos % (Auto) (0.0-4.3) % Baso % (Auto) (0.0-1.8) % Lymph # (Auto) (1.2-5.4) K/mm3 Hayes # (Auto) (0.0-0.8) K/mm3 Eos # (Auto) (0.0-0.4) K/mm3 Baso # (Auto) (0.0-0.1) K/mm3 Seg Neutrophils % (40.0-70.0) % Seg Neutrophils # (1.8-7.7) K/mm3 PT (12.2-14.9) Sec. INR (0.87-1.13) APTT (24.2-36.6) Sec. Thrombin Time (15.1-19.6) Sec. Sodium 140 (137-145) mmol/L Potassium 3.6 (3.6-5.0) mmol/L Chloride 102.3 (98-107) mmol/L Carbon Dioxide 27 (22-30) mmol/L Anion Gap 14 mmol/L BUN 11 (7-17) mg/dL Creatinine 0.8 (0.6-1.2) mg/dL Estimated GFR > 60 ml/min BUN/Creatinine Ratio 14 % Glucose 106 H (65-100) mg/dL POC Glucose (70-105) mg/dL Calcium 10.8 H (8.4-10.2) mg/dL Magnesium 1.80 (1.7-2.3) mg/dL Total Bilirubin 0.40 (0.1-1.2) mg/dL AST 24 (5-40) units/L ALT 19 (7-56) units/L Alkaline Phosphatase 83 (35-129) units/L Total Creatine Kinase 288 H (30-135) units/L Total Protein 7.4 (6.3-8.2) g/dL Albumin 4.5 (3.9-5) g/dL Albumin/Globulin Ratio 1.6 % Salicylates < 0.3 L (2.8-20.0) mg/dL Acetaminophen 5.0 L (10.0-30.0) ug/mL Plasma/Serum Alcohol (0-0.07) % 05/22/22 Range/Units 18:46 WBC (4.5-11.0) K/mm3 RBC (3.65-5.03) M/mm3 Hgb (10.1-14.3) gm/dl Hct (30.3-42.9) % MCV (79-97) fl MCH (28-32) pg MCHC (30-34) % RDW (13.2-15.2) % Plt Count (140-440) K/mm3 Lymph % (Auto) (13.4-35.0) % Hayes % (Auto) (0.0-7.3) % Eos % (Auto) (0.0-4.3) % Baso % (Auto) (0.0-1.8) % Lymph # (Auto) (1.2-5.4) K/mm3 Hayes # (Auto) (0.0-0.8) K/mm3 Eos # (Auto) (0.0-0.4) K/mm3 Baso # (Auto) (0.0-0.1) K/mm3 Seg Neutrophils % (40.0-70.0) % Seg Neutrophils # (1.8-7.7) K/mm3 PT (12.2-14.9) Sec. INR (0.87-1.13) APTT (24.2-36.6) Sec. Thrombin Time (15.1-19.6) Sec. Sodium (137-145) mmol/L Potassium (3.6-5.0) mmol/L Chloride (98-107) mmol/L Carbon Dioxide (22-30) mmol/L Anion Gap mmol/L BUN (7-17) mg/dL Creatinine (0.6-1.2) mg/dL Estimated GFR ml/min BUN/Creatinine Ratio % Glucose (65-100) mg/dL POC Glucose (70-105) mg/dL Calcium (8.4-10.2) mg/dL Magnesium (1.7-2.3) mg/dL Total Bilirubin (0.1-1.2) mg/dL AST (5-40) units/L ALT (7-56) units/L Alkaline Phosphatase (35-129) units/L Total Creatine Kinase (30-135) units/L Total Protein (6.3-8.2) g/dL Albumin (3.9-5) g/dL Albumin/Globulin Ratio % Salicylates (2.8-20.0) mg/dL Acetaminophen (10.0-30.0) ug/mL Plasma/Serum Alcohol < 0.01 (0-0.07) % - EKG Data -: EKG Interpreted by Vt EKG shows normal: sinus rhythm Rate: normal - EKG Data 05/22/22 19:43 The EKG is interpreted at 19: 31 Sinus rhythm, bradycardia, rate 57 bpm. Normal axis, normal P wave axis, QTC 4 5 4 ms, and poor R wave progression. Abnormal EKG. Not a STEMI - Radiology Data Radiology results: pending, report reviewed, image reviewed [facility] [address] [id number] Cat Scan Report Signed Patient: ANISH MONZON MR#: [id number] : 1960 Acct:[id number] Age/Sex: 62 / F ADM Date: 05/22/22 Loc: ED Attending Dr: Ordering Physician: TWIN ABDUL MD Date of Service: 05/22/22 Procedure(s): CT head/brain wo con Accession Number(s): [id number] cc: TWIN ABDUL MD CT BRAIN: 05/22/2022 INDICATION / CLINICAL INFORMATION: Unsteady gait, right-sided numbness. COMPARISON: CT brain 07/09/2020 FINDINGS: BRAIN/INTRACRANIAL STRUCTURES: Unenhanced CT images of the brain were obtained and compared to the prior exam from 07/09/2020. There is been no change. There is no evidence of acute abnormality. Ventricles and sulci are normal in size and shape for a patient of this age. There is no evidence of hemorrhage or mass. There are no abnormal extra-axial fluid collections. EXTRACRANIAL STRUCTURES: Unremarkable. IMPRESSION: No acute abnormality All CT scans at this location are performed using dose reduction to ALARA by means of automated exposure control. Signer Name: Trey Kate MD Signed: 05/22/2022 7:33 PM Workstation Name: [id number] Transcribed By: RAMAN Dictated By: Trey Kate MD Electronically Authenticated By: Trey Kate MD Signed Date/Time: 05/22/221932 DD/ 28 Critical care attestation.: If time is entered above; I have spent that time in minutes in the direct care of this critically ill patient, excluding procedure time. ED Disposition Clinical Impression: Unsteady gait, Right sided numbness, Benzodiazepine dependence Disposition: ADMITTED INPATIENT Is pt being admited?: Yes Does the pt Need Aspirin: No Condition: Good Referrals: PRIMARY CARE, [Primary Care Provider] - 3-5 Days - Assessment Assessment Interval: Baseline - Level of Consciousness 1a. Level of Consciousness: alert/keenly responsive - LOC Questions 1b. LOC Questions: answers both correctly - LOC Command 1c. LOC Commands: performs tasks correctly - Best Gaze 2. Best Gaze: normal - Visual 3. Visual: no visual loss - Facial Palsy 4. Facial Palsy: normal symmetrical movement - Motor Arm 5a. Motor Arm Left: no drift 5b. Motor Arm Right: drift - Motor Leg 6a. Motor Leg Left: no drift 6b. Motor Leg Right: no drift - Limb Ataxia 7. Limb Ataxia: present 1 limb - Sensory 8. Sensory: mild/moderate sensory loss - Best Language 9. Best Language: no aphasia - Dysarthria 10. Dysarthria: normal - Extinction and Inattention 11. Extinction/Inattention: no abnormality - Scoring Total Score: 3 Stroke Severity: Minor Stroke
[2022-05-22 19:20] LABS: INR 0.87 (0.87-1.13)
[2022-05-22 19:21] LABS: Partial Thromboplastin Time 31.3 Sec. (24.2-36.6); Thrombin Time 15.7 Sec. (15.1-19.6)
[2022-05-22 19:28] LABS: Basophils # (Auto) 0.1 K/mm3 (0.0-0.1); Basophils % (Auto) 0.9 % (0.0-1.8); Eosinophils # (Auto) 0.1 K/mm3 (0.0-0.4); Eosinophils % (Auto) 1.8 % (0.0-4.3); Hemoglobin 12.8 gm/dl (10.1-14.3); Lymphocytes # (Auto) 1.3 K/mm3 (1.2-5.4); Lymphocytes % (Auto) 19.6 % (13.4-35.0); Mean Corpuscular HGB Conc 33 % (30-34); Mean Corpuscular Volume 93 fl (79-97); Monocytes # (Auto) 0.6 K/mm3 (0.0-0.8); Monocytes % (Auto) 8.7 % (0.0-7.3); Platelet Count 257 K/mm3 (140-440); Red Blood Count 4.18 M/mm3 (3.65-5.03); Red Cell Distribution Width 12.8 % (13.2-15.2)
[2022-05-22 19:30] LABS: Alanine Aminotransferase 19 units/L (7-56); Albumin 4.5 g/dL (3.9-5); BUN/Creatinine Ratio 14; Blood Urea Nitrogen 11 mg/dL (7-17); Calcium 10.8 mg/dL (8.4-10.2); Hemolysis Index 3
--- NOTE | 2022-05-22 19:37 | Cat Scan Report ---
CT BRAIN: 05/22/2022 INDICATION / CLINICAL INFORMATION: Unsteady gait, right-sided numbness. COMPARISON: CT brain 07/09/2020 FINDINGS: BRAIN/INTRACRANIAL STRUCTURES: Unenhanced CT images of the brain were obtained and compared to the pr ior exam from 07/09/2020. There is been no change. There is no evidence of acute abnormality. Ventricles and sulci are normal in size and shape for a pa tient of this age. There is no evidence of hemorrhage or mass. There are no abnormal extra-axial fluid collections. EXTRACRANIAL STRUCTURES: Unremarkable. IMPRESSION: No acute abnormality All CT scans at this location are performed using dose reduction to ALARA by means of automated expos ure control. Signer Name: Trey Kate MD Signed: 05/22/2022 7:33 PM Workstation Name: [id number]
[2022-05-22] MEDS ORDERED: CLOPIDOGREL 75 MG TAB PO ONE (19:44)
--- NOTE | 2022-05-22 19:59 | Emergency Department Report ---
Blank Doc - Documentation Documentation: [facility] Consult Note # Demographics Consult Type: Acute Stroke Level 1 (0-4.5 hrs) Patient Location: Emergency Room First Name: ANISH Last Name: KANDI Date of : 1960 Age: 62 Gender: Female Facility: [facility] Time of Initial Page (Eastern Time): 05/22/2022, 18:43 Time of Return Call (Eastern Time): 05/22/2022, 18:43 # HPI History: 62 year old female with hx of HTN, hypothyroid who feels she is withdrawing from her xanax. She is dizzy since waking up, decreased sensation on the right side, felt to maybe have unsteady gait, dysarthria. Patient states she was not feeling right that is why she came to the ED. Last Known Normal: last night # Scores Level of Consciousness 1a: [0] = Alert; keenly responsive LOC Questions 1b: [0] = Answers both questions correctly LOC Commands 1c: [0] = Performs both tasks correctly Best Gaze 2: [0] = Normal Visual 3: [0] = No visual loss Facial Palsy 4: [0] = Normal symmetrical movements Motor Arm Left 5a: [0] = No drift Motor Arm Right 5b: [0] = No drift Motor Leg Left 6a: [0] = No drift Motor Leg Right 6b: [0] = No drift Limb Ataxia 7: [0] = Absent Sensory 8: [1] = [id number] sensory loss Best Language 9: [0] = No aphasia Dysarthria 10: [0] = Normal Extinction and Inattention 11: [0] = No abnormality NIHSS Total: 1 # Exam Additional Neurologic Exam: stuttering speech but no clear dysarthria # PMH-FH-SH Past Medical History: anxiety bipolar hypertension hypothyroid Social History: smoker non-drinker THC lives independently # Data Head CT: no bleed per radiologist read # Assessment Impression: 62 year old female with extensive psych history presents with complaints of dysarthria, unsteady gait, decreased sensation on the right. Noted NIHSS 1 of dec sensation. Speech is intermittently is stuttering but no dysarthria noted. Pt states she feels like this is related to her PTSD/anxiety episode. She used THC today to help her allevaite these symptoms. CTH negative. Less likely to be truly neurological at this time. Recommend metabolic work up and psych eval. If symptoms continue or progress can consider MRI Brain. # Plan Labs: Ammonia CBC comprehensive metabolic panel troponin TSH urine drug screen ua Therapy/Evaluation: speech/swallow consultation Other: If patient has any neurological deterioration please call me back immediately would not pursue stroke work-up if MRI is negative I have discussed my recommendations with the referring provider
[2022-05-22 20:08] LABS: Creatine Kinase MB 11.8 ng/mL (0.0-4.0)
[2022-05-22 20:53] LABS: Bacteria,Urine 1+ /HPF (Negative); Mucus,Urine FEW /HPF; RBC,Urine < 1.0 /HPF (0.0-6.0)
[2022-05-22 21:05] LABS: Color,Urine Yellow (Yellow)
[2022-05-22 21:06] LABS: Bilirubin,Urine Negative (Negative); Blood,Urine Negative (Negative)
[2022-05-22 21:22] LABS: Amphetamine Screen,Urine PRESUMPTIVE POSITIVE; Benzodiazepines Screen,Urine PRESUMPTIVE POSITIVE; Cannabinoid Screen,Urine PRESUMPTIVE NEGATIVE; Cocaine Screen,Urine PRESUMPTIVE NEGATIVE; Methadone Screen,Urine PRESUMPTIVE NEGATIVE; Opiate Screen,Urine PRESUMPTIVE NEGATIVE
[2022-05-22] MEDS ORDERED: MORPHINE 2 MG/1 ML INJ IV PRN (21:57)
[2022-05-22] MEDS ORDERED: ALBUTEROL 2.5 MG/3 ML NEBU IH PRN (21:57)
[2022-05-22] MEDS ORDERED: MORPHINE 4 MG/1 ML INJ IV PRN (21:57)
[2022-05-22] MEDS ORDERED: ACETAMINOPHEN 325 MG TAB PO PRN (21:57)
[2022-05-22] MEDS ORDERED: ONDANSETRON 4 MG/2 ML INJ IV PRN (21:57)
[2022-05-22] MEDS ORDERED: D5W/0.9% NACL 1,000 ML IV SCH (22:00)
--- NOTE | 2022-05-22 22:07 | History and Physical Report ---
History of Present Illness Date of examination: 05/22/22 Date of admission: 05/22/22 Chief complaint: Dizziness Unsteady gait History of present illness: 62-year-old female who presents to the department today with a request for Xanax refill. She reports that someone either took her Xanax, or that she had misplaced her Xanax. She denies physical pain. On review of systems, does report nonspecific dizziness, and sensation of unsteady gait. Thinks that dizziness started last night, cannot recall exactly what time, and believes that unsteady gait was present upon waking up this morning. On review of systems, also endorses right upper extremity numbness and weakness. Laboratory studies are essentially unremarkable. CT scan brain negative for acute findings. Plavix ordered given nonspecific ketorolac allergy. Patient is seen and evaluated by telemetry neurology. Nursing team endorses that patient has articulated improvement in symptoms after receiving midazolam. Past History Past Medical History: hypertension, hyperlipidemia, hypothyroidism, migraines, other (Bipolar, headache) Past Surgical History: Other (. carpal tunnel- right wrist. left leg surgery- titanium placed in ankle and leg) Social history: smoking Family history: hypertension Medications and Allergies Allergies Allergy/AdvReac Type Severity Reaction Status Date / Time butorphanol tartrate AdvReac Unknown Verified 08/15/20 10:17 [From Stadol] ketorolac tromethamine AdvReac Unknown Verified 08/15/20 10:17 [From Toradol] tramadol AdvReac Unknown Verified 08/15/20 10:17 Home Medications Medication Instructions Recorded Confirmed Last Taken Type SUMAtriptan SUCCINATE [Imitrex] 50 mg PO BID #10 tab 04/18/20 05/22/22 Unknown Rx ALPRAZolam [Xanax TAB] 0.5 mg PO TID PRN 08/15/20 05/22/22 Unknown History FLUoxetine HCL [PROzac] 40 mg PO QDAY 08/15/20 05/22/22 Unknown History Lansoprazole [Prevacid] 15 mg PO BID #30 cap 08/15/20 05/22/22 Unknown Rx Levothyroxine [Synthroid] 75 mcg PO QAM 08/15/20 05/22/22 Unknown History Lisinopril/Hydrochlorothiazide 1 each PO DAILY 08/15/20 05/22/22 Unknown History [Zestoretic 10-12.5 mg Tablet] OLANzapine [ZyPREXA] 7.5 mg PO DAILY 08/15/20 05/22/22 Unknown History Ondansetron (Nf) [Zofran TAB] 8 mg PO Q8HR PRN 08/15/20 05/22/22 Unknown History Ondansetron [Zofran Odt] 4 mg PO Q8HR #7 tab.rapdis 08/15/20 05/22/22 Unknown Rx Review of Systems All systems: negative Constitutional: weakness, malaise (Headache abnormal gait, arthralgia), other (Dizziness) Exam - Constitutional Vitals: Temp Pulse Resp BP Pulse Ox 97.6 F 69 17 165/102 100 05/22/22 14:16 05/22/22 21:55 05/22/22 21:55 05/22/22 21:55 05/22/22 21:55 General appearance: Present: no acute distress, well-nourished - EENT Eyes: Present: PERRL ENT: hearing intact, clear oral mucosa - Neck Neck: Present: supple, normal ROM - Respiratory Respiratory effort: normal Respiratory: bilateral: CTA - Cardiovascular Heart Sounds: Present: S1 & S2. Absent: rub, click - Extremities Extremities: pulses symmetrical, No edema Peripheral Pulses: within normal limits - Abdominal General gastrointestinal: Present: soft, non-tender, non-distended, normal bowel sounds Female genitourinary: Present: normal - Integumentary Integumentary: Present: clear, warm, dry - Musculoskeletal Musculoskeletal: gait normal, strength equal bilaterally - Psychiatric Psychiatric: appropriate mood/affect, intact judgment & insight - Neurologic Neurologic: CNII-XII intact, moves all extremities HEART Score - HEART Score Troponin: Troponin T < 0.010 ng/mL (0.00-0.029) 05/22/22 18:46 Results - Labs CBC & Chem 7: 05/22/22 18:46 05/22/22 18:46 Labs: Laboratory Last Values WBC 6.4 K/mm3 (4.5-11.0) 05/22/22 18:46 RBC 4.18 M/mm3 (3.65-5.03) 05/22/22 18:46 Hgb 12.8 gm/dl (10.1-14.3) 05/22/22 18:46 Hct 39.0 % (30.3-42.9) 05/22/22 18:46 MCV 93 fl (79-97) 05/22/22 18:46 MCH 31 pg (28-32) 05/22/22 18:46 MCHC 33 % (30-34) 05/22/22 18:46 RDW 12.8 % (13.2-15.2) L 05/22/22 18:46 Plt Count 257 K/mm3 (140-440) 05/22/22 18:46 Lymph % (Auto) 19.6 % (13.4-35.0) 05/22/22 18:46 [place] % (Auto) 8.7 % (0.0-7.3) H 05/22/22 18:46 Eos % (Auto) 1.8 % (0.0-4.3) 05/22/22 18:46 Baso % (Auto) 0.9 % (0.0-1.8) 05/22/22 18:46 Lymph # (Auto) 1.3 K/mm3 (1.2-5.4) 05/22/22 18:46 [place] # (Auto) 0.6 K/mm3 (0.0-0.8) 05/22/22 18:46 Eos # (Auto) 0.1 K/mm3 (0.0-0.4) 05/22/22 18:46 Baso # (Auto) 0.1 K/mm3 (0.0-0.1) 05/22/22 18:46 Seg Neutrophils % 69.0 % (40.0-70.0) 05/22/22 18:46 Seg Neutrophils # 4.4 K/mm3 (1.8-7.7) 05/22/22 18:46 PT 12.8 Sec. (12.2-14.9) 05/22/22 18:46 INR 0.87 (0.87-1.13) 05/22/22 18:46 APTT 31.3 Sec. (24.2-36.6) 05/22/22 18:46 Thrombin Time 15.7 Sec. (15.1-19.6) 05/22/22 18:46 Sodium 140 mmol/L (137-145) 05/22/22 18:46 Potassium 3.6 mmol/L (3.6-5.0) 05/22/22 18:46 Chloride 102.3 mmol/L (98-107) 05/22/22 18:46 Carbon Dioxide 27 mmol/L (22-30) 05/22/22 18:46 Anion Gap 14 mmol/L 05/22/22 18:46 BUN 11 mg/dL (7-17) 05/22/22 18:46 Creatinine 0.8 mg/dL (0.6-1.2) 05/22/22 18:46 Estimated GFR > 60 ml/min 05/22/22 18:46 BUN/Creatinine Ratio 14 % 05/22/22 18:46 Glucose 106 mg/dL (65-100) H 05/22/22 18:46 POC Glucose 113 mg/dL (70-105) H 05/22/22 18:44 Calcium 10.8 mg/dL (8.4-10.2) H 05/22/22 18:46 Magnesium 1.80 mg/dL (1.7-2.3) 05/22/22 18:46 Total Bilirubin 0.40 mg/dL (0.1-1.2) 05/22/22 18:46 AST 24 units/L (5-40) 05/22/22 18:46 ALT 19 units/L (7-56) 05/22/22 18:46 Alkaline Phosphatase 83 units/L (35-129) 05/22/22 18:46 Total Creatine Kinase 288 units/L (30-135) H 05/22/22 18:46 Total Creatine Kinase 297 units/L (30-135) H 05/22/22 18:46 CK-MB (CK-2) 11.8 ng/mL (0.0-4.0) H 05/22/22 18:46 CK-MB (CK-2) Rel Index 3.9 (0-4) 05/22/22 18:46 Troponin T < 0.010 ng/mL (0.00-0.029) 05/22/22 18:46 Total Protein 7.4 g/dL (6.3-8.2) 05/22/22 18:46 Albumin 4.5 g/dL (3.9-5) 05/22/22 18:46 Albumin/Globulin Ratio 1.6 % 05/22/22 18:46 TSH 6.060 mlU/mL (0.270-4.200) H 05/22/22 18:46 Free T4 1.15 ng/dL (0.76-1.46) 05/22/22 18:46 Urine Color Yellow (Yellow) 05/22/22 19:44 Urine Turbidity Slightly cloudy (Clear) 05/22/22 19:44 Urine pH 8.0 (5.0-7.0) H 05/22/22 19:44 Ur Specific [place] 1.030 (1.003-1.030) 05/22/22 19:44 Urine Protein 30 mg/dl mg/dL (Negative) 05/22/22 19:44 Urine Glucose (UA) Negative mg/dL (Negative) 05/22/22 19:44 Urine Ketones Negative mg/dL (Negative) 05/22/22 19:44 Urine Blood Negative (Negative) 05/22/22 19:44 Urine Nitrite Negative (Negative) 05/22/22 19:44 Ur Reducing Substances Not Reportable 05/22/22 19:44 Urine Bilirubin Negative (Negative) 05/22/22 19:44 Urine Ictotest Not Reportable 05/22/22 19:44 Urine Urobilinogen 2.0 mg/dL (<2.0) 05/22/22 19:44 Ur Leukocyte Esterase Small (Negative) 05/22/22 19:44 Urine WBC (Auto) 27.0 /HPF (0.0-6.0) H 05/22/22 19:44 Urine RBC (Auto) < 1.0 /HPF (0.0-6.0) 05/22/22 19:44 U Epithel Cells (Auto) 4.0 /HPF (0-13.0) 05/22/22 19:44 Urine Bacteria (Auto) 1+ /HPF (Negative) 05/22/22 19:44 Urine Mucus Few /HPF 05/22/22 19:44 Salicylates < 0.3 mg/dL (2.8-20.0) L 05/22/22 18:46 Urine Opiates Screen Presumptive negative 05/22/22 20:47 Urine Methadone Screen Presumptive negative 05/22/22 20:47 Acetaminophen 5.0 ug/mL (10.0-30.0) L 05/22/22 18:46 Ur Barbiturates Screen Presumptive negative 05/22/22 20:47 Ur Phencyclidine Scrn Presumptive negative 05/22/22 20:47 Ur Amphetamines Screen Presumptive positive 05/22/22 20:47 U Benzodiazepines Scrn Presumptive positive 05/22/22 20:47 Urine Cocaine Screen Presumptive negative 05/22/22 20:47 U Marijuana (THC) Screen Presumptive negative 05/22/22 20:47 Plasma/Serum Alcohol < 0.01 % (0-0.07) 05/22/22 18:46 - Imaging and Cardiology CT Scan - head: report reviewed Assessment and Plan VTE prophylaxis?: Mechanical Plan of care discussed with patient/family: Yes - Patient Problems (1) Unsteady gait Current Visit: Yes Status: Acute Plan to address problem: Admit the patient to the medical floor. NPO. Plavix 75 mg p.o. daily. Lipitor 40 mg p.o. daily. His speech PT OT evaluation. MRI of the brain and MRA of the brain and neck with and without contrast. Echocardiogram. Consult neurology in the morning since there is no coverage (2) Right sided numbness Current Visit: Yes Status: Acute Plan to address problem: NPO. Plavix 75 mg p.o. daily. Lipitor 40 mg p.o. daily. His speech PT OT evaluation. MRI of the brain and MRA of the brain and neck with and without contrast. Echocardiogram. Consult neurology in the morning since there is no coverage (3) Hypertension Current Visit: Yes Status: Acute Plan to address problem: Lisinopril/hydrochlorothiazide 10/12.5 mg p.o. daily. We will continue the other home medication (4) Hypothyroidism Current Visit: Yes Status: Acute Plan to address problem: Synthroid 75 mcg p.o. every morning. We will recheck that TSH and T4 (5) High cholesterol Current Visit: Yes Status: Acute Plan to address problem: Lipitor 40 mg p.o. daily. We recheck the lipid panel (6) Benzodiazepine dependence Current Visit: Yes Status: Acute Plan to address problem: Stable. Counseled regarding quit taking benzodiazepine. (7) DVT prophylaxis Current Visit: Yes Status: Acute Plan to address problem: SCD for DVT prophylaxis. Pepcid 20 mg IV every 12 hours for GI prophylaxis. Patient is a full code
[2022-05-23] MEDS: IPRATROPIUM/ALBUTEROL SULFATE 3 ML AMPUL.NEB IH SCH ×3 (02:47→14:11)
[2022-05-23 06:31] LABS: Basophils % (Auto) 0.6 % (0.0-1.8); Eosinophils # (Auto) 0.2 K/mm3 (0.0-0.4); Eosinophils % (Auto) 3.5 % (0.0-4.3); Hematocrit 37.2 % (30.3-42.9); Hemoglobin 12.5 gm/dl (10.1-14.3); Lymphocytes # (Auto) 1.1 K/mm3 (1.2-5.4); Lymphocytes % (Auto) 16.5 % (13.4-35.0); Mean Corpuscular HGB Conc 34 % (30-34); Mean Corpuscular Volume 93 fl (79-97); Monocytes # (Auto) 0.6 K/mm3 (0.0-0.8); Monocytes % (Auto) 9.8 % (0.0-7.3); Platelet Count 228 K/mm3 (140-440); Red Blood Count 4.02 M/mm3 (3.65-5.03); Red Cell Distribution Width 12.8 % (13.2-15.2)
[2022-05-23] MEDS: LEVOTHYROXINE 75 MCG TAB PO SCH (06:38)
[2022-05-23 06:51] LABS: Blood Urea Nitrogen 11 mg/dL (7-17); Calcium 9.9 mg/dL (8.4-10.2); Chol/HDL Ratio 2.76 %; HDL Cholesterol 59 mg/dL (40-59); Hemolysis Index 2; LDL Cholesterol,Direct 86 mg/dL (50-130)
[2022-05-23 06:55] LABS: BUN/Creatinine Ratio 16
[2022-05-23] MEDS ORDERED: POTASSIUM CHLORIDE ER 20 MEQ TAB PO NR (07:33)
[2022-05-23] MEDS: FAMOTIDINE 20 MG/2 ML INJ IV SCH ×3 (09:24→21:57)
--- NOTE | 2022-05-23 09:48 | Electrocardiograph Report ---
[facility] Test Date: 2022-05-22 Test Time: 19:31:55 Pat Name: ANISH MONZON Department: Room: A484 1 Gender: F Radiology Director: Sloan : 1960 Requested By: TWIN ABDUL Order Number: [id number] Reading MD: Donell Kearney Measurements Intervals [place] Rate: 57 P: 58 OR: 147 QRS: 30 QRSD: 96 T: 54 QT: 467 QTc: 454 Interpretive Statements Sinus bradycardia No previous ECG available for comparison Electronically Signed On 05-23-2022 9:47:54 EDT by Donell Kearney
[2022-05-23] MEDS ORDERED: NON-FORMULARY EACH (Lisinopril/Hydrochlorothiazide [Zestoretic 10-12.5 Mg Tablet] 1 EACH T PO SCH (10:00)
[2022-05-23] MEDS ORDERED: SUMAtriptan SUCCINATE 50 MG TAB PO SCH (10:00)
[2022-05-23] MEDS ORDERED: SUMAtriptan SUCCINATE 50 MG TAB PO PRN (11:00)
[2022-05-23] MEDS: hydroCHLOROthiazide 12.5 MG CAP PO SCH (11:04)
[2022-05-23] MEDS: LISINOPRIL 10 MG TAB PO SCH (11:05)
--- NOTE | 2022-05-23 14:20 | Consultation ---
History of Present Illness - Reason for Consult Consult date: 05/23/22 Reason for consult: depression - History of Present Psychiatric Illness The patient was seen today. She is a/o x 3. She appears anxious. She says she wanted someone to talk to because she can't afford to repair her home. The patient says it is infested with cockroaches and "they probably have eaten the dog they are so bad." She says the sink has a leak and is filled with water beneath it and the floor is caving in where you can see the ground. The patient says her is in senior living and normally took care of everything. She says she sees a psychiatrist for PTSD, bipolar and depression. The patient says the doctor told her she had meth in her system but she says she didn't purposely take it. The patient denies SI/HI or hallucinations. She is asking me not to tell anyone about the condition of her house, because she's afraid they might condemn it. The patient is also worried that her job will find out that she tested positive for meth. Advised the patient that her medical records are co nfidential. PAST PSYCHIATRIC HISTORY: Diagnoses: PTSD, bipolar, depression Suicide attempts or Self-harm behavior: Denies Prior psychiatric hospitalizations: Denies Substance Abuse history: Methamphetamine, benzos Previous psychiatric medications tried: Denies Outpatient treatment: Denies PAST MEDICAL HISTORY: None reported Family Psychiatric History: None reported or documented SOCIAL HISTORY Marital Status: Living Arrangements: alone Employment Status: Employed Access to guns/weapons: Denies Education: History of Abuse: Denies Legal History: Denies REVIEW OF SYSTEMS Constitutional: Negative for weight loss ENT: Negative for stridor Respiratory: Negative for cough or hemoptysis All other systems reviewed and are negative MENTAL STATUS EXAMINATION General Appearance and Behavior: Age appropriate, good hygiene, wearing julienne ropriate clothes, calm, cooperative Cooperation: cooperative Psychomotor Behavior: Normal Mood: nervous Affect and affective range: congruent Thought Process: Goal directed Thought Content: None Speech: Normal tone and pace Intellectual Functioning: Average Suicidal Ideation: Denies Homicidal Ideation: Denies Hallucination: Denies Impulse Control:Limited Insight and Judgment: limited insight and poor judgment Memory: Intact Attention:Attentive Orientation: Alert and oriented Diagnoses: (1) Polysubstance Use Disorder Treatment Plan: Agree with restarting home meds Case management consult. The patient is requesting someone to speak with about living conditions MEDICAL: Per primary team DELIRIUM PRECAUTIONS: Please re-orient patient frequently, keep lights on during the day, and minimize benzodiazepines and opiates as these medications could worsen patient's confusion. TOBACCO WEIGHER: Per medical team DISPOSITION: Do not recommend acute inpatient psychiatric hospitalization at this time FOLLOW-UP: will sign off Thank you for the consult. Please contact with any questions and/or concerns. Case staffed with Dr. Mariscal Medications and Allergies Allergies Allergy/AdvReac Type Severity Reaction Status Date / Time butorphanol tartrate AdvReac Unknown Verified 08/15/20 10:17 [From Stadol] ketorolac tromethamine AdvReac Unknown Verified 08/15/20 10:17 [From Toradol] tramadol AdvReac Unknown Verified 08/15/20 10:17 Home Medications Medication Instructions Recorded Confirmed Last Taken Type SUMAtriptan SUCCINATE [Imitrex] 50 mg PO BID #10 tab 04/18/20 05/22/22 Unknown Rx ALPRAZolam [Xanax TAB] 0.5 mg PO TID PRN 08/15/20 05/22/22 Unknown History FLUoxetine HCL [PROzac] 40 mg PO QDAY 08/15/20 05/22/22 Unknown History Lansoprazole [Prevacid] 15 mg PO BID #30 cap 08/15/20 05/22/22 Unknown Rx Levothyroxine [Synthroid] 75 mcg PO QAM 08/15/20 05/22/22 Unknown History Lisinopril/Hydrochlorothiazide 1 each PO DAILY 08/15/20 05/22/22 Unknown History [Zestoretic 10-12.5 mg Tablet] OLANzapine [ZyPREXA] 7.5 mg PO DAILY 08/15/20 05/22/22 Unknown History Ondansetron (Nf) [Zofran TAB] 8 mg PO Q8HR PRN 08/15/20 05/22/22 Unknown History Ondansetron [Zofran Odt] 4 mg PO Q8HR #7 tab.rapdis 08/15/20 05/22/22 Unknown Rx Active Meds: Active Medications Acetaminophen (Acetaminophen 325 Mg Tab) 650 mg PO Q4H PRN PRN Reason: Pain MILD(1-3)/Fever >100.5/GARCIA Last Admin: 05/23/22 04:33 Dose: 650 mg Albuterol (Albuterol 2.5 Mg/3 Ml Nebu) 2.5 mg IH Q3HRT PRN PRN Reason: Shortness Of Breath Albuterol/Ipratropium (Ipratropium/Albuterol Sulfate 3 Ml Ampul.Neb) 1 ampul IH Q6HRT [facility] Last Admin: 05/23/22 14:11 Dose: Not Given Alprazolam (Alprazolam 0.5 Mg Tab) 0.5 mg PO TID PRN PRN Reason: Anxiety Atorvastatin Calcium (Atorvastatin 40 Mg Tab) 40 mg PO QHS [facility] Last Admin: 05/23/22 09:24 Dose: Not Given Famotidine (Famotidine 20 Mg/2 Ml Inj) 20 mg IV BID [facility] Last Admin: 05/23/22 11:04 Dose: 20 mg Hydrochlorothiazide (Hydrochlorothiazide 12.5 Mg Cap) 12.5 mg PO QDAY [facility] Last Admin: 05/23/22 11:04 Dose: 12.5 mg Levothyroxine Sodium (Levothyroxine 75 Mcg Tab) 75 mcg PO DAILY@0600 [facility] Last Admin: 05/23/22 06:38 Dose: 75 mcg Lisinopril (Lisinopril 10 Mg Tab) 10 mg PO QDAY [facility] Last Admin: 05/23/22 11:05 Dose: 10 mg Morphine Sulfate (Morphine 2 Mg/1 Ml Inj) 2 mg IV Q4H PRN PRN Reason: Pain, Moderate (4-6) Last Admin: 05/23/22 11:06 Dose: 2 mg Morphine Sulfate (Morphine 4 Mg/1 Ml Inj) 4 mg IV Q4H PRN PRN Reason: Pain , Severe (7-10) Olanzapine (Olanzapine 7.5 Mg Tab) 7.5 mg PO DAILY [facility] Last Admin: 05/23/22 12:07 Dose: 7.5 mg Ondansetron HCl (Ondansetron 4 Mg/2 Ml Inj) 4 mg IV Q8H PRN PRN Reason: Nausea And Vomiting Sodium Chloride (Sodium Chloride 0.9% 10 Ml Flush Syringe) 10 ml IV BID [facility] Last Admin: 05/23/22 11:05 Dose: 10 ml Sodium Chloride (Sodium Chloride 0.9% 10 Ml Flush Syringe) 10 ml IV PRN PRN PRN Reason: LINE FLUSH Sumatriptan Succinate (Sumatriptan Succinate 50 Mg Tab) 50 mg PO BID PRN PRN Reason: MIGRAINE HEADACHE Mental Status Exam - Vital signs Last Vital Signs Temp 97.8 F 05/23/22 12:44 Pulse 86 05/23/22 12:44 Resp 15 05/23/22 12:44 BP 157/90 05/23/22 12:44 Pulse Ox 98 05/23/22 12:44 Results Result Diagrams: 05/23/22 05:52 05/23/22 05:52 Abnormal lab results 05/22/22 05/22/22 05/22/22 Range/Units 18:44 18:46 18:46 RDW 12.8 L (13.2-15.2) % [place] % (Auto) 8.7 H (0.0-7.3) % Lymph # (Auto) (1.2-5.4) K/mm3 Potassium (3.6-5.0) mmol/L Glucose (65-100) mg/dL POC Glucose 113 H (70-105) mg/dL Calcium (8.4-10.2) mg/dL Ammonia (25-60) umol/L Total Creatine Kinase 297 H (30-135) units/L CK-MB (CK-2) 11.8 H (0.0-4.0) ng/mL TSH (0.270-4.200) mlU/mL Urine pH (5.0-7.0) Urine WBC (Auto) (0.0-6.0) /HPF Salicylates (2.8-20.0) mg/dL Acetaminophen (10.0-30.0) ug/mL 05/22/22 05/22/22 05/22/22 Range/Units 18:46 18:46 18:46 RDW (13.2-15.2) % [place] % (Auto) (0.0-7.3) % Lymph # (Auto) (1.2-5.4) K/mm3 Potassium (3.6-5.0) mmol/L Glucose 106 H (65-100) mg/dL POC Glucose (70-105) mg/dL Calcium 10.8 H (8.4-10.2) mg/dL Ammonia (25-60) umol/L Total Creatine Kinase 288 H (30-135) units/L CK-MB (CK-2) (0.0-4.0) ng/mL TSH 6.060 H (0.270-4.200) mlU/mL Urine pH (5.0-7.0) Urine WBC (Auto) (0.0-6.0) /HPF Salicylates < 0.3 L (2.8-20.0) mg/dL Acetaminophen (10.0-30.0) ug/mL 05/22/22 05/22/22 05/22/22 Range/Units 18:46 19:44 21:50 RDW (13.2-15.2) % [place] % (Auto) (0.0-7.3) % Lymph # (Auto) (1.2-5.4) K/mm3 Potassium (3.6-5.0) mmol/L Glucose (65-100) mg/dL POC Glucose (70-105) mg/dL Calcium (8.4-10.2) mg/dL [place] 19.0 L (25-60) umol/L Total Creatine Kinase (30-135) units/L CK-MB (CK-2) (0.0-4.0) ng/mL TSH (0.270-4.200) mlU/mL Urine pH 8.0 H (5.0-7.0) Urine WBC (Auto) 27.0 H (0.0-6.0) /HPF Salicylates (2.8-20.0) mg/dL Acetaminophen 5.0 L (10.0-30.0) ug/mL 05/23/22 05/23/22 Range/Units 05:52 05:52 RDW 12.8 L (13.2-15.2) % [place] % (Auto) 9.8 H (0.0-7.3) % Lymph # (Auto) 1.1 L (1.2-5.4) K/mm3 Potassium 3.4 L (3.6-5.0) mmol/L Glucose 114 H (65-100) mg/dL POC Glucose (70-105) mg/dL Calcium (8.4-10.2) mg/dL Ammonia (25-60) umol/L Total Creatine Kinase (30-135) units/L CK-MB (CK-2) (0.0-4.0) ng/mL TSH (0.270-4.200) mlU/mL Urine pH (5.0-7.0) Urine WBC (Auto) (0.0-6.0) /HPF Salicylates (2.8-20.0) mg/dL Acetaminophen (10.0-30.0) ug/mL All other labs normal.
--- NOTE | 2022-05-23 14:23 | Progress Note ---
Assessment and Plan Assessment and plan: #Unstable gait #Right-sided numbness/weakness Patient presented outside of the window for possible tPA. Neurology consulted; pending recs. Pending TTE to evaluate cardiac function. Physical therapy and Occupational Therapy consulted; pending recs. Pending lipid profile and hemoglobin A1c. Continue Plavix 75 mg daily (patient has aspirin allergy) and atorvastatin 40 mg daily. #Hypokalemia Potassium 3.4 Repleted. Follow-up with repeat BMP tomorrow morning. #Hyperlipidemia #Hypertension - home medications: Atorvastatin 40 mg daily, lisinopril/hydrochlorothiazide 10/12.5 mg daily - current medications: Atorvastatin 40 mg daily, lisinopril 10 mg daily, hydrochlorothiazide 12.5 mg daily - SBP goal <160 and DBP goal <90 while inpatient - continue to monitor #Hypothyroidism Continue home levothyroxine 75 mcg daily #Polysubstance dependence -Patient engages in the following substances: Benzos + amphetamines -Counseled patient about the importance of cessation of substance abuse. Offered resources to help with quitting. Patient expresses understanding. -Time: +15 mins #Advanced care planning -Disease education conducted, care plan discussed, diagnoses discussed, prognosis discussed, and patient acknowledges understanding with care plan -Time: +30 min Disposition Plan: Continue medical management Total Time Spent with Patient (Minutes): 45 minutes History Interval history: No acute events overnight. Hospitalist Physical - Constitutional Vitals: Temp Pulse Resp BP Pulse Ox 97.8 F 86 15 157/90 98 05/23/22 12:44 05/23/22 12:44 05/23/22 12:44 05/23/22 12:44 05/23/22 12:44 General appearance: Present: no acute distress, well-nourished, other (Fasciculations of mouth) - EENT Eyes: Present: PERRL, EOM intact ENT: hearing intact, clear oral mucosa, dentition normal, edentulous - Neck Neck: Present: supple, normal ROM - Respiratory Respiratory effort: normal Respiratory: bilateral: CTA - Cardiovascular Rhythm: regular Heart Sounds: Present: S1 & S2 - Extremities Extremities: no ischemia, pulses intact, pulses symmetrical, No edema, normal temperature, normal color, Full ROM Peripheral Pulses: within normal limits - Abdominal General gastrointestinal: soft, non-tender, non-distended, normal bowel sounds - Integumentary Integumentary: Present: clear, warm, dry - Psychiatric Psychiatric: appropriate mood/affect, cooperative - Neurologic Neurologic: CNII-XII intact, moves all extremities - Allied Health Allied health notes reviewed: nursing HEART Score - HEART Score Troponin: Troponin T < 0.010 ng/mL (0.00-0.029) 05/22/22 18:46 Results - Labs CBC & Chem 7: 05/23/22 05:52 05/23/22 05:52 Labs: Laboratory Last Values WBC 6.6 K/mm3 (4.5-11.0) 05/23/22 05:52 RBC 4.02 M/mm3 (3.65-5.03) 05/23/22 05:52 Hgb 12.5 gm/dl (10.1-14.3) 05/23/22 05:52 Hct 37.2 % (30.3-42.9) 05/23/22 05:52 MCV 93 fl (79-97) 05/23/22 05:52 MCH 31 pg (28-32) 05/23/22 05:52 MCHC 34 % (30-34) 05/23/22 05:52 RDW 12.8 % (13.2-15.2) L 05/23/22 05:52 Plt Count 228 K/mm3 (140-440) 05/23/22 05:52 Lymph % (Auto) 16.5 % (13.4-35.0) 05/23/22 05:52 [place]ink[place] % (Auto) 9.8 % (0.0-7.3) H 05/23/22 05:52 Eos % (Auto) 3.5 % (0.0-4.3) 05/23/22 05:52 Baso % (Auto) 0.6 % (0.0-1.8) 05/23/22 05:52 Lymph # (Auto) 1.1 K/mm3 (1.2-5.4) L 05/23/22 05:52 Winkler # (Auto) 0.6 K/mm3 (0.0-0.8) 05/23/22 05:52 Eos # (Auto) 0.2 K/mm3 (0.0-0.4) 05/23/22 05:52 Baso # (Auto) 0.0 K/mm3 (0.0-0.1) 05/23/22 05:52 Seg Neutrophils % 69.6 % (40.0-70.0) 05/23/22 05:52 Seg Neutrophils # 4.6 K/mm3 (1.8-7.7) 05/23/22 05:52 PT 12.8 Sec. (12.2-14.9) 05/22/22 18:46 INR 0.87 (0.87-1.13) 05/22/22 18:46 APTT 31.3 Sec. (24.2-36.6) 05/22/22 18:46 Thrombin Time 15.7 Sec. (15.1-19.6) 05/22/22 18:46 Sodium 141 mmol/L (137-145) 05/23/22 05:52 Potassium 3.4 mmol/L (3.6-5.0) L 05/23/22 05:52 Chloride 106.0 mmol/L (98-107) 05/23/22 05:52 Carbon Dioxide 26 mmol/L (22-30) 05/23/22 05:52 Anion Gap 12 mmol/L 05/23/22 05:52 BUN 11 mg/dL (7-17) 05/23/22 05:52 Creatinine 0.7 mg/dL (0.6-1.2) 05/23/22 05:52 Estimated GFR > 60 ml/min 05/23/22 05:52 BUN/Creatinine Ratio 16 % 05/23/22 05:52 Glucose 114 mg/dL (65-100) H 05/23/22 05:52 POC Glucose 113 mg/dL (70-105) H 05/22/22 18:44 Calcium 9.9 mg/dL (8.4-10.2) 05/23/22 05:52 Magnesium 1.80 mg/dL (1.7-2.3) 05/22/22 18:46 Total Bilirubin 0.40 mg/dL (0.1-1.2) 05/22/22 18:46 AST 24 units/L (5-40) 05/22/22 18:46 ALT 19 units/L (7-56) 05/22/22 18:46 Alkaline Phosphatase 83 units/L (35-129) 05/22/22 18:46 Ammonia 19.0 umol/L (25-60) L 05/22/22 21:50 Total Creatine Kinase 288 units/L (30-135) H 05/22/22 18:46 Total Creatine Kinase 297 units/L (30-135) H 05/22/22 18:46 CK-MB (CK-2) 11.8 ng/mL (0.0-4.0) H 05/22/22 18:46 CK-MB (CK-2) Rel Index 3.9 (0-4) 05/22/22 18:46 Troponin T < 0.010 ng/mL (0.00-0.029) 05/22/22 18:46 Total Protein 7.4 g/dL (6.3-8.2) 05/22/22 18:46 Albumin 4.5 g/dL (3.9-5) 05/22/22 18:46 Albumin/Globulin Ratio 1.6 % 05/22/22 18:46 Triglycerides 109 mg/dL (2-149) 05/23/22 05:52 Cholesterol 163 mg/dL (50-199) 05/23/22 05:52 LDL Cholesterol Direct 86 mg/dL (50-130) 05/23/22 05:52 HDL Cholesterol 59 mg/dL (40-59) 05/23/22 05:52 Cholesterol/HDL Ratio 2.76 % 05/23/22 05:52 TSH 6.060 mlU/mL (0.270-4.200) H 05/22/22 18:46 Free T4 1.15 ng/dL (0.76-1.46) 05/22/22 18:46 Urine Color Yellow (Yellow) 05/22/22 19:44 Urine Turbidity Slightly cloudy (Clear) 05/22/22 19:44 Urine pH 8.0 (5.0-7.0) H 05/22/22 19:44 Ur Specific [place] 1.030 (1.003-1.030) 05/22/22 19:44 Urine Protein 30 mg/dl mg/dL (Negative) 05/22/22 19:44 Urine Glucose (UA) Negative mg/dL (Negative) 05/22/22 19:44 Urine Ketones Negative mg/dL (Negative) 05/22/22 19:44 Urine Blood Negative (Negative) 05/22/22 19:44 Urine Nitrite Negative (Negative) 05/22/22 19:44 Ur Reducing Substances Not Reportable 05/22/22 19:44 Urine Bilirubin Negative (Negative) 05/22/22 19:44 Urine Ictotest Not Reportable 05/22/22 19:44 Urine Urobilinogen 2.0 mg/dL (<2.0) 05/22/22 19:44 Ur Leukocyte Esterase Small (Negative) 05/22/22 19:44 Urine WBC (Auto) 27.0 /HPF (0.0-6.0) H 05/22/22 19:44 Urine RBC (Auto) < 1.0 /HPF (0.0-6.0) 05/22/22 19:44 U Epithel Cells (Auto) 4.0 /HPF (0-13.0) 05/22/22 19:44 Urine Bacteria (Auto) 1+ /HPF (Negative) 05/22/22 19:44 Urine Mucus Few /HPF 05/22/22 19:44 Salicylates < 0.3 mg/dL (2.8-20.0) L 05/22/22 18:46 Urine Opiates Screen Presumptive negative 05/22/22 20:47 Urine Methadone Screen Presumptive negative 05/22/22 20:47 Acetaminophen 5.0 ug/mL (10.0-30.0) L 05/22/22 18:46 Ur Barbiturates Screen Presumptive negative 05/22/22 20:47 Ur Phencyclidine Scrn Presumptive negative 05/22/22 20:47 Ur Amphetamines Screen Presumptive positive 05/22/22 20:47 U Benzodiazepines Scrn Presumptive positive 05/22/22 20:47 Urine Cocaine Screen Presumptive negative 05/22/22 20:47 U Marijuana (THC) Screen Presumptive negative 05/22/22 20:47 Drugs of Abuse Note Disclamer 05/22/22 20:47 Plasma/Serum Alcohol < 0.01 % (0-0.07) 05/22/22 18:46 Brownlee/IV: Voiding Method Toilet Active Medications - Current Medications Current Medications: Generic Name Dose Route Start Last Admin Trade Name Freq PRN Reason Stop Dose Admin Acetaminophen 650 mg 05/22/22 21:57 05/23/22 04:33 Acetaminophen 325 Mg Tab PO 650 mg Q4H PRN Administration Pain MILD(1-3)/Fever >100.5/GARCIA Albuterol 2.5 mg 05/22/22 21:57 Albuterol 2.5 Mg/3 Ml Nebu IH Q3HRT PRN Shortness Of Breath Albuterol/Ipratropium 1 ampul 05/23/22 02:00 05/23/22 14:11 Ipratropium/Albuterol Sulfate 3 Ml Ampul.Neb IH Not Given Q6HRT THA Alprazolam 0.5 mg 05/22/22 22:01 Alprazolam 0.5 Mg Tab PO TID PRN Anxiety Atorvastatin Calcium 40 mg 05/22/22 22:00 05/23/22 09:24 Atorvastatin 40 Mg Tab PO Not Given QHS THA Famotidine 20 mg 05/22/22 22:00 05/23/22 11:04 Famotidine 20 Mg/2 Ml Inj IV 20 mg BID THA Administration Hydrochlorothiazide 12.5 mg 05/23/22 10:00 05/23/22 11:04 Hydrochlorothiazide 12.5 Mg Cap PO 12.5 mg QDAY THA Administration Levothyroxine Sodium 75 mcg 05/23/22 06:00 05/23/22 06:38 Levothyroxine 75 Mcg Tab PO 75 mcg DAILY@0600 THA Administration Lisinopril 10 mg 05/23/22 10:00 05/23/22 11:05 Lisinopril 10 Mg Tab PO 10 mg QDAY THA Administration Morphine Sulfate 2 mg 05/22/22 21:57 05/23/22 11:06 Morphine 2 Mg/1 Ml Inj IV 2 mg Q4H PRN Administration Pain, Moderate (4-6) Morphine Sulfate 4 mg 05/22/22 21:57 Morphine 4 Mg/1 Ml Inj IV Q4H PRN Pain , Severe (7-10) Olanzapine 7.5 mg 05/23/22 10:00 05/23/22 12:07 Olanzapine 7.5 Mg Tab PO 7.5 mg DAILY THA Administration Ondansetron HCl 4 mg 05/22/22 21:57 Ondansetron 4 Mg/2 Ml Inj IV Q8H PRN Nausea And Vomiting Sodium Chloride 10 ml 05/22/22 22:00 05/23/22 11:05 Sodium Chloride 0.9% 10 Ml Flush Syringe IV 10 ml BID THA Administration Sodium Chloride 10 ml 05/22/22 21:57 Sodium Chloride 0.9% 10 Ml Flush Syringe IV PRN PRN LINE FLUSH Sumatriptan Succinate 50 mg 05/23/22 11:00 Sumatriptan Succinate 50 Mg Tab PO BID PRN MIGRAINE HEADACHE
[2022-05-23] MEDS: ALPRAZolam 0.5 MG TAB PO PRN ×2 (14:28→22:10)
[2022-05-23] MEDS ORDERED: ALBUTEROL 2.5 MG/3 ML NEBU IH PRN (19:38)
--- NOTE | 2022-05-23 19:59 | Consultation ---
History of Present Illness Consult date: 05/23/22 Reason for Consult: cva vs conversion d/o Chief complaint: Imbalance History of present illness: 62 yo right-handed female with htn, hld, hypothyroidism, migraine d/o, who presents with noted request for xanax secondary to feeling like something bad was going to happen to her and especially because she was staying alone, she was really worried. However, patient also notes a sense of feeling unsteady with imbalance since yesterday. She also notes feeling slightly vertiginous and felt like it was another one of the same vertigo attacks she has had in the past. She notes that however, the imbalance also was concerning to her. She notes no other acute neurologic symptoms. She notes she would like to go to work tomorrow. Past History Past Medical History: hypertension, hyperlipidemia, hypothyroidism, migraines, other (Bipolar, headache) Past Surgical History: Other (. carpal tunnel- right wrist. left leg surgery- titanium placed in ankle and leg) Social history: smoking Family history: hypertension Medications and Allergies Allergies Allergy/AdvReac Type Severity Reaction Status Date / Time acetaminophen [From Tylenol] AdvReac Urinary Verified 05/24/22 07:55 Issues butorphanol tartrate AdvReac Nightmares Verified 05/24/22 07:55 [From Stadol] ketorolac tromethamine AdvReac Unknown Verified 05/24/22 07:55 [From Toradol] tramadol AdvReac Unknown Verified 05/24/22 07:55 Home Medications Medication Instructions Recorded Confirmed Last Taken Type SUMAtriptan SUCCINATE [Imitrex] 50 mg PO BID #10 tab 04/18/20 05/22/22 Unknown Rx ALPRAZolam [Xanax TAB] 0.5 mg PO TID PRN 08/15/20 05/22/22 Unknown History FLUoxetine HCL [PROzac] 40 mg PO QDAY 08/15/20 05/22/22 Unknown History Lansoprazole [Prevacid] 15 mg PO BID #30 cap 08/15/20 05/22/22 Unknown Rx Levothyroxine [Synthroid] 75 mcg PO QAM 08/15/20 05/22/22 Unknown History Lisinopril/Hydrochlorothiazide 1 each PO DAILY 08/15/20 05/22/22 Unknown History [Zestoretic 10-12.5 mg Tablet] OLANzapine [ZyPREXA] 7.5 mg PO DAILY 08/15/20 05/22/22 Unknown History Ondansetron (Nf) [Zofran TAB] 8 mg PO Q8HR PRN 08/15/20 05/22/22 Unknown History Ondansetron [Zofran Odt] 4 mg PO Q8HR #7 tab.rapdis 08/15/20 05/22/22 Unknown Rx Active Meds: Active Medications Acetaminophen (Acetaminophen 325 Mg Tab) 650 mg PO Q4H PRN PRN Reason: Pain MILD(1-3)/Fever >100.5/GARCIA Last Admin: 05/23/22 04:33 Dose: 650 mg Albuterol (Albuterol 2.5 Mg/3 Ml Nebu) 2.5 mg IH Q4HRT PRN PRN Reason: Shortness Of Breath Alprazolam (Alprazolam 0.5 Mg Tab) 0.5 mg PO TID PRN PRN Reason: Anxiety Last Admin: 05/23/22 14:28 Dose: 0.5 mg Atorvastatin Calcium (Atorvastatin 40 Mg Tab) 40 mg PO QHS [facility] Last Admin: 05/23/22 09:24 Dose: Not Given Famotidine (Famotidine 20 Mg/2 Ml Inj) 20 mg IV BID [facility] Last Admin: 05/23/22 11:04 Dose: 20 mg Hydrochlorothiazide (Hydrochlorothiazide 12.5 Mg Cap) 12.5 mg PO QDAY [facility] Last Admin: 05/23/22 11:04 Dose: 12.5 mg Levothyroxine Sodium (Levothyroxine 75 Mcg Tab) 75 mcg PO DAILY@0600 [facility] Last Admin: 05/23/22 06:38 Dose: 75 mcg Lisinopril (Lisinopril 10 Mg Tab) 10 mg PO QDAY [facility] Last Admin: 05/23/22 11:05 Dose: 10 mg Morphine Sulfate (Morphine 2 Mg/1 Ml Inj) 2 mg IV Q4H PRN PRN Reason: Pain, Moderate (4-6) Last Admin: 05/23/22 11:06 Dose: 2 mg Morphine Sulfate (Morphine 4 Mg/1 Ml Inj) 4 mg IV Q4H PRN PRN Reason: Pain , Severe (7-10) Olanzapine (Olanzapine 7.5 Mg Tab) 7.5 mg PO DAILY [facility] Last Admin: 05/23/22 12:07 Dose: 7.5 mg Ondansetron HCl (Ondansetron 4 Mg/2 Ml Inj) 4 mg IV Q8H PRN PRN Reason: Nausea And Vomiting Sodium Chloride (Sodium Chloride 0.9% 10 Ml Flush Syringe) 10 ml IV BID [facility] Last Admin: 05/23/22 11:05 Dose: 10 ml Sodium Chloride (Sodium Chloride 0.9% 10 Ml Flush Syringe) 10 ml IV PRN PRN PRN Reason: LINE FLUSH Sumatriptan Succinate (Sumatriptan Succinate 50 Mg Tab) 50 mg PO BID PRN PRN Reason: MIGRAINE HEADACHE Review of Systems All systems: negative (as per hpi;) Physical Examination - Vital Signs Vital Signs: Vital Signs Temp Pulse Resp BP Pulse Ox 97.6 F 82 20 152/94 99 05/22/22 14:16 05/22/22 14:16 05/22/22 14:16 05/22/22 14:16 05/22/22 14:16 - Physical Exam Narrative exam: Gen: nad, well-nourished; Head: normocephalic; Eyes: no gaze deviation; no ptosis; ENT: normal vocalization; CVS: warm and well-perfused; Pulm: no respiratory distress; GI: appears non-distended; Ext: no cyanosis appreciated at distal extremities; Skin: no acute rash at distal extremities; Heme: no pathologic ecchymosis appreciated at distal extremities; Neuro: alert, oriented to name, age, month, year, surroundings, no dysarthria, no aphasia, CN 2 - PERRL, visual [place] grossly intact, CN 3, 4, 6 - EOMI, CN 5 - facial sensation symmetric decreased on the right to light touch, CN 7 - facial movement symmetric, CN 8 - hearing grossly intact, CN 9, 10 - uvula midline, CN 11 symmetric shoulder movement, CN 12 - tongue midline; Motor - at least 4+/5 at all exts except 3/5 w/ 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; Sensory - light touch decreased at right arm/leg; Cerebellar - fnf /hts slowed/intact, Gait - deferred secondary to fall risk; NIHSS (1a.) Level of Consciousness:0 (1b.) LOC Questions:0 (1c.) LOC Commands:0 (2.) Best Gaze:0 (3.) Visual:0 (4.) Facial Palsy:0 (5a.) Motor Arm, Left:0 (5b.) Motor Arm, Right:0 (6a.) Motor Leg, Left:0 (6b.) Motor Leg, Right:1 (7.) Limb Ataxia:0 (8.) Sensory:1 (9.) Best Language:0 (10.) Dysarthria:0 (11.) Extinction and Inattention:0 NIHSS Total Score:2 Results - Laboratory Findings CBC and BMP: 05/23/22 05:52 05/23/22 05:52 Abnormal Lab Findings: Abnormal Labs 05/22/22 05/22/22 05/22/22 18:44 18:46 18:46 RDW 12.8 L Owen % (Auto) 8.7 H Lymph # (Auto) Potassium Glucose POC Glucose 113 H Calcium Ammonia Total Creatine Kinase 297 H CK-MB (CK-2) 11.8 H TSH Urine pH Urine WBC (Auto) Salicylates Acetaminophen 05/22/22 05/22/22 05/22/22 18:46 18:46 18:46 RDW Owen % (Auto) Lymph # (Auto) Potassium Glucose 106 H POC Glucose Calcium 10.8 H Ammonia Total Creatine Kinase 288 H CK-MB (CK-2) TSH 6.060 H Urine pH Urine WBC (Auto) Salicylates < 0.3 L Acetaminophen 05/22/22 05/22/22 05/22/22 18:46 19:44 21:50 RDW Owen % (Auto) Lymph # (Auto) Potassium Glucose POC Glucose Calcium Ammonia 19.0 L Total Creatine Kinase CK-MB (CK-2) TSH Urine pH 8.0 H Urine WBC (Auto) 27.0 H Salicylates Acetaminophen 5.0 L 05/23/22 05/23/22 05:52 05:52 RDW 12.8 L Owen % (Auto) 9.8 H Lymph # (Auto) 1.1 L Potassium 3.4 L Glucose 114 H POC Glucose Calcium Ammonia Total Creatine Kinase CK-MB (CK-2) TSH Urine pH Urine WBC (Auto) Salicylates Acetaminophen Assessment and Plan 62 yo right-handed female with htn, hld, hypothyroidism, migraine d/o, who presents with noted request for xanax secondary to feeling like something bad was going to happen to her and especially because she was staying alone, she was really worried. However, patient also notes a sense of feeling unsteady with imbalance since yesterday. 1. Acute Ischemic Stroke - plavix 75 mg po qday; statin therapy for a goal ldl of 70; mri brain w/ wo contrast ordered, cta head/neck ordered; covid-19, ld, tsh; further workup such as tte, based on imaging findings. 2. Peripheral Vertigo - concern is raised based on clinical description; awaiting mri/cta. 3. Hypertension - aim for permissive htn with sbp 140-180 mmHg. 4. Hyperlipidemia - goal ldl of 70. 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 6. Right-sided Numbness - outpatient workup if mri brain is normal w/ neurology f/u in 4 weeks. 7. Anxiety Attack - concern is raised based on clinical event immediately prior to ed arrival. 8. Conversion Disorder - diagnosis of exclusion. Ramon Wright MD Neurology [id number]
[2022-05-24] MEDS: LEVOTHYROXINE 75 MCG TAB PO SCH (06:05)
[2022-05-24] MEDS: FAMOTIDINE 20 MG/2 ML INJ IV SCH (10:20)
[2022-05-24] MEDS: LISINOPRIL 10 MG TAB PO SCH (10:21)
[2022-05-24] MEDS: ALPRAZolam 0.5 MG TAB PO PRN ×2 (10:21→15:42)
[2022-05-24] MEDS: hydroCHLOROthiazide 12.5 MG CAP PO SCH (10:21)
--- NOTE | 2022-05-24 11:07 | Event Note ---
Date: 05/24/[address] angiogram of head/neck due to low filling form prior contrast was given with CT. We discussed the risk of foregoing this imaging, patient understood. She would like to continue with MRI without contrast. Awaiting findings to see if patient will be stable for discharge today. Patient endorses resolution of symptoms and attributes them to lack of Xanax. She would like to be discharged soon as possible.
--- NOTE | 2022-05-24 14:10 | Magnetic Resonance Report ---
MRI BRAIN WITHOUT CONTRAST INDICATION / CLINICAL INFORMATION: cva, neoplasm--rt sided numbness. TECHNIQUE: Multiplanar, multisequence MR images of the brain were obtained. COMPARISON: Head CT 05/22/2022 and 07/09/2020 FINDINGS: BRAIN / INTRACRANIAL CONTENTS: Ventricles and cortical sulci are normal in size and configuration. Th ere is no mass effect. No evidence of intracranial hemorrhage or extra-axial fluid collection is seen . Nonspecific foci of white matter hyperintensity are seen in both cerebral hemispheres. There is a t hin rind of periventricular white matter hyperintensity adjacent to the lateral margins of the latera l ventricles. In addition multiple scattered small foci of white matter hyperintensity are seen in a deep and subcortical white matter distribution. These findings could be secondary to microvascular is chemic change. No additional areas of abnormal brain parenchymal signal intensity are identified. The re is no indication of remote cortical infarction. Diffusion weighted scans are negative. There is no indication of acute ischemic injury. The brainstem and cerebellum have an unremarkable appearance. MIDLINE STRUCTURES:No abnormalities are seen to involve the pituitary gland. Pineal region has an unr emarkable appearance. CRANIOCERVICAL JUNCTION: No abnormalities are identified at the craniocervical junction. VASCULAR FLOW-VOIDS: Normal flow-voids are present within the major intracranial vessels. ORBITS: The orbits have an unremarkable appearance. SINUSES / MASTOIDS: There is no indication of inflammatory disease in the paranasal sinuses. Small am ount of fluid signal intensity is seen within inferior left-sided mastoid air cells consistent with m astoid effusion. Following the administration of intravenous contrast enhancement of normal vascular structures is dem onstrated. No areas of abnormal contrast enhancement are identified. IMPRESSION: 1. Multifocal white matter hyperintensities. Suspect microvascular ischemia. 2. Otherwise negative MRI brain without contrast. Signer Name: Orestes Edgar MD Signed: 05/24/2022 2:05 PM Workstation Name: [id number]
--- NOTE | 2022-05-24 14:24 | Discharge Summary ---
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 She reported dizziness and unsteady gait and was admitted for CVA rule out. Initial CT of the head showed no acute abnormality. CT angiogram of the head neck was declined by patient due to prior ill feeling after contrast exposure. MRI of the brain showed multifocal white matter hyperintensities suggestive of microvascular ischemia, but was otherwise unremarkable. Once stable, patient was discharged home. Disposition: 01 HOME / SELF CARE / HOMELESS Final Discharge Diagnosis (Prints w/discharge instructions): Unstable gait. Right-sided weakness numbness. TIA versus CVA ruled out. Hypokalemia. Hypertension. Hyperlipidemia. Hypothyroidism. Polysubstance abuse Time spent for discharge: 40 minutes Core Measure Documentation - Palliative Care Palliative Care/ Comfort Measures: Not Applicable - Core Measures Any of the following diagnoses?: none Exam - Physical Exam Narrative exam: GENERAL: Well-developed well-nourished. In no acute distress. HEENT: Normocephalic. Atraumatic. NECK: Supple. CHEST/LUNGS: CTAB on room air HEART/CARDIOVASCULAR: RRR. No murmur, rubs or gallops appreciated. ABDOMEN: +BS. NT/ND. NEURO: No focal motor deficit. Follows all commands and is ambulatory. MUSCULOSKELETAL: No joint effusion EXTREMITIES: No cyanosis, clubbing or edema. PSYCH: Cooperative. - Constitutional Vitals: Temp Pulse Resp BP Pulse Ox 97.8 F 65 15 103/67 96 05/24/22 11:47 05/24/22 12:00 05/24/22 11:47 05/24/22 11:47 05/24/22 11:47 Plan Care Plan Goals: Please follow-up with your primary care provider. Make sure to stay up-to-date with your provider visits in order to continue to get refills of your Xanax prescriptions. Please have your primary care provider to refer you to a neurologist for follow- up within the next 4 weeks. MRI was negative for findings of stroke. Please take all your home medications as they are prescribed to you. Follow up with: PRIMARY CARE, [Primary Care Provider] - 3-5 Days Prescriptions: AtorvaSTATin [Lipitor] 40 mg PO QHS 30 Days #30 tablet hydroCHLOROthiazide [HCTZ] 12.5 mg PO QDAY 30 Days #30 capsule ALPRAZolam [Xanax TAB] 0.5 mg PO TID PRN 7 Days #21 tablet PRN Reason: Anxiety lisinopriL [Zestril TAB] 10 mg PO QDAY 30 Days #30 tablet Other Discharge Orders: Physicial Therapy (Amb) Location: None Selected
[2022-05-24 16:14] VITALS: BP 107/57
== END 2022-05-24 17:07 | disposition home or self-care (01) | DRG 92 ==
LOC: ED 13:38 → 4A 21:57
PROVIDERS: ADMIT Hospitalist; ATTEND Student in an Organized Health Care Education/Training Program
DX: R26.81 Unsteadiness on feet (principal); F13.20 Sedative, hypnotic or anxiolytic dependence, uncomplicated; F41.9 Anxiety disorder, unspecified; R42 Dizziness and giddiness; R20.0 Anesthesia of skin; E78.00 Pure hypercholesterolemia, unspecified; E78.5 Hyperlipidemia, unspecified; F31.9 Bipolar disorder, unspecified; E03.9 Hypothyroidism, unspecified; G43.909 Migraine, unspecified, not intractable, without status migrainosus; Z82.49 Family history of ischemic heart disease and other diseases of the circulatory system; Z88.5 Allergy status to narcotic agent; Z88.8 Allergy status to other drugs, medicaments and biological substances; Z79.899 Other long term (current) drug therapy
CPT/HCPCS: 36415; 70450; 70551; 80048; 80053; 80061; 80307; 80320; 81001; 82140; 82550; 82553; 82962; 83735; 84439; 84443; 84484; 85025; 85610; 85670; 85730; 87086; 93005; 94640; 99406; G0378; J3490; G0480; J2250; J2270; J7042